=== PATIENT | female | born 1995 | race Caucasian/White ===

== ENCOUNTER 2025-04-06 13:52 | Outpatient (OUT) | payer OTHER, SELFPAY ==
[2025-04-06 14:33] LABS: Hematocrit 36.8 % (36.0-48.0); Hemoglobin 12.5 g/dL (12.0-16.0); Immature Granulocytes Abs Auto 0.03 10^3/uL (0.00-0.03); Immature Granulocytes Pct Auto 0.4 % (0.0-0.5); Lymphocytes Absolute Auto 1.8 10^3/uL (1.2-3.8); Mean Corpuscular HGB Conc 34.0 g/dL (29.9-35.2); Mean Corpuscular Hemoglobin 31.8 pg (26.7-34.0); Mean Corpuscular Volume 93.6 fL (81.0-99.0); Platelet Count 283 10^3/uL (150-450); Red Blood Count 3.93 10^6/uL (4.20-5.40); White Blood Count 7.5 10^3/uL (4.0-11.0)
[2025-04-06 14:57] LABS: Thyroid Stimulating Hormone 0.852 uIU/mL (0.358-3.740)
[2025-04-07 04:07] LABS: FSH 6.5 mIU/mL (.)
== END 2025-04-06 13:53 | disposition home or self-care (01) ==
LOC: LAB 13:57
PROVIDERS: Visit Provider Obstetrics & Gynecology
DX: N92.1 Excessive and frequent menstruation with irregular cycle (principal); N80.9 Endometriosis, unspecified; N93.9 Abnormal uterine and vaginal bleeding, unspecified; N92.0 Excessive and frequent menstruation with regular cycle
CPT/HCPCS: 36415; 82626; 82627; 83001; 83002; 83036; 84439; 84443; 84702; 85025; 88305

== ENCOUNTER 2025-04-06 15:19 | Outpatient (REF) | payer OTHER, SELFPAY ==
--- OUTSIDE RECORDS SUMMARY | 2025-04-06 14:30 | XMS_ITS | Encounter Summary ---
Author Organization [facility] Address [address] [place] [place] [address] Care Team Providers Care Signal Manager Name Role Phone Donna Lopez NP Unavailable [phone] Cassandra Cifuentes MD Primary Care Provider [phone] Reason for Visit * Reason Comments Pre-op Visit EMBX Encounter Details Date Type Department Care Team (Late st Contact Info) Description 04/06/2025 2:30 PM EDT Procedure Visit [facility] [address] [phone] Reece Almeida, DO [address] [place], [place] [id number] Pre-op examination; Abnormal uterine bleeding (AUB); Menorrhagia with irregular cycle; Pelvic pain Social History Tobacco Use Types Packs/Day Years Used Date Smoking Tobacco: Never Smokeless Tobacco: Never Alcohol Use Standard Drinks/Week Comments Not Currently 0 (1 standard drink = 0.6 oz pur e alcohol) AUDIT-C Answer Date Recorded Q1: How often do you have a drink containing alcohol? Never 04/09/2023 Q2: How many drinks containi ng alcohol do you have on a typical day when you are drinking? Patient does not drink Q3: How often do you have si x or more drinks on one occasion? Never 04/09/2023 PHQ-2 Answer Date Recorded Patient Health Questionnaire-2 Score 3 10/25/2024 Comments No Sex and Gender Information Value Date Recorded Sex Assigned at Not on file Legal Sex Female 11:47 PM EDT Gender Identity Female 06/25/2024 7:01 AM EDT Sexual Orientation Not on file documented as of this encounter Last Filed Vital Signs Vital Sign Reading Time Taken Comments Blood Pressure 100/70 04/06/2025 2:34 PM EDT Pulse - - Temperature - - Respiratory Rate - - Oxygen Saturation - - Inhaled Oxygen Concentration - - Weight 77.9 kg (171 lb 12.8 oz) 04/06/2025 2:34 PM EDT Height - - Body Mass Index 29.49 03/10/2025 4:29 PM EDT documented in this encounter Progress Notes * Arti Vickers - 04/06/2025 2:30 PM EDTAssociated Order(s): Endometrial biopsy Post-Procedure Diagnose(s): Menorrhagia with irregular cycle; Abnormal uterine bleeding (AUB) Reason for Appointment: Patient ID: Chelsy Bhatti is a 29 y.o. female who presents for Pre-op Visit and EMBX Patient presents today for a Endometrial Biopsy and Pre Op/Endometrial Biopsy appointment. Patient is scheduled to undergo Da Emily assisted Bilateral Laparoscopic Salpingectomy and Endometrial Ablation with Raven on 05-06-[address] Almeida at [facility]. appointment. MEDICATIONS Current Outpatient Medications Medication Instructions SUMAtriptan (IMITREX) 50 mg, Oral, Once as needed, May repeat after 2 hours. ALLERGIES Allergies Allergen Reactions Amoxicillin Rash PROBLEMS Active Ambulatory Problems Diagnosis Date Noted Asthma without status asthmaticus (HCC) 10/25/2024 Bilateral chronic knee pain 10/25/2024 Contact dermatitis 10/25/2024 Costal chondritis 10/25/2024 Dysmenorrhea 10/25/2024 Dyspnea 12/06/2008 Depression screening 10/25/2024 Encounter for issue of repeat prescription 10/25/2024 Headache 10/25/2024 Insomnia 10/25/2024 Migraine 10/25/2024 Migraine without aura and without status migrainosus, not intractable 10/25/2024 Mixed anxiety and depressive disorder 10/25/2024 New daily persistent headache 10/25/2024 Otitis media of left ear 10/25/2024 Pain in wrist 10/25/2024 Sprain of ribs, initial encounter 06/14/2009 Menorrhagia with irregular cycle 02/28/2025 Endometriosis 02/28/2025 Resolved Ambulatory Problems Diagnosis Date Noted No Resolved Ambulatory Problems Past Medical History: Diagnosis Date Asthma (HCC) HISTORY PAST MEDICAL HISTORY SOCIAL HISTORY Past Medical History: Diagnosis Date Asthma (HCC) Endometriosis Social History Tobacco Use Smoking status: Never Smokeless tobacco: Never Vaping Use Vaping status: Never Used Substance Use Topics Alcohol use: Not Currently Drug use: Never FAMILY HISTORY Family History Problem Relation Name Age of Onset COPD Mother Other (Pacemaker) Father No Known Problems Sister 2 Diabetes Maternal Grandmother Other (Pacemaker) Paternal Grandfather SURGICAL HISTORY Past Surgical History: Procedure Laterality Date LAPAROSCOPY CLOSURE ENTEROSTOMY 2017 REVIEW OF SYSTEMS Review of Systems: Review of Systems Constitutional: Negative. HENT: Negative. Eyes: Negative. Respiratory: Negative. Cardiovascular: Negative. Gastrointestinal: Negative. Genitourinary: Positive for menstrual problem. Musculoskeletal: Negative. Skin: Negative. Neurological: Negative. All other systems reviewed and are negative. Hematological: Negative. Endocrine: Negative. Allergic/Immunologic: Negative. OBJECTIVE Objective: Physical Exam Constitutional: Appearance: Normal appearance. She is well-developed. Genitourinary: Vulva normal. Cardiovascular: Rate and Rhythm: Normal rate and regular rhythm. Pulmonary: Effort: Pulmonary effort is normal. Breath sounds: Normal breath sounds. Abdominal: General: Bowel sounds are normal. There is no distension. Palpations: Abdomen is soft. Tenderness: There is no abdominal tenderness. There is no guarding or rebound. Musculoskeletal: General: No swelling. Normal range of motion. Right lower leg: No edema. Left lower leg: No edema. Neurological: Mental Status: She is alert and oriented to person, place, and time. Skin: General: Skin is warm and dry. Psychiatric: Mood and Affect: Mood normal. Behavior: Behavior normal. Vitals and nursing note reviewed. Exam conducted with a ticket machine operator present. Vitals: Estimated body mass index is 30.04 kg/m?? as calculated from the following: Height as of 03/10/25: 5' 4 . Weight as of 03/10/25: 175 lb. BP: No LMP recorded. ASSESSMENT & PLAN Assessment/Plan Encounter Diagnosis: ICD-10-CM 1. Pre-op examination Z01.818 2. Abnormal uterine bleeding (AUB) N93.9 3. Menorrhagia with irregular cycle N92.1 4. Pelvic pain R10.2 EMBX: Patient was placed in dorsal lithotomy position with feet in stirrups. A sterile speculum was placed into the vagina and the cervix was visualized. The cervix was grasped with a single tooth tenaculum. The endometrial pipette was placed through the cervix into the uterus, endometrial curettage was performed and sampling was obtained, endometrial curettings were placed in formalin, and single tooth tenaculum was removed. Excellent hemostasis was assured. All instruments were removed from vagina. Pre Op: Patient is doing well but has complaints of bleeding and pelvic pain. Patient has tried hormone therapy in the past but all attempts to subside patients issues have failed. I have discussed conservative management vs. surgical management with the patient in detail and patient desires surgical management at this time. Patient will undergo Da Emily assisted Bilateral Laparoscopic Salpingectomy and Endometrial Ablation with Raven on 05/06/25. Surgical consents were signed, mmc was reviewed, and patient is to proceed to [facility] OR. Follow Up: Patient is to follow up between 1-2 weeks post op to assess proper healing and recovery from procedure. Endometrial biopsy Date/Time: 04/06/2025 2:50 PM Performed by: Reece Almeida DO Authorized by: Reece Almeida DO Consent: Consent obtained: written Consent given by: patient Risks discussed: bleeding Patient agrees, verbalizes understanding, and wants to proceed: yes Indications: Indications: abnormal uterine bleeding and abnormal bleeding from female genital tract Pre-procedure: Urine test: negative Procedure: A bimanual exam was performed: no Tenaculum used: yes Local anesthetic: none Findings: Cervix: normal Specimen collected: specimen collected and sent to pathology Patient tolerance: tolerated well, no immediate complications Comments: Procedure comments: EMBX: Patient was placed in dorsal lithotomy position with feet in stirrups. A sterile speculum was placed into the vagina and the cervix was visualized. The cervix was grasped with a single tooth tenaculum. The endometrial pipette was placed through the cervix into the uterus, endometrial curettage was performed and sampling was obtained, endometrial curettings were placed in formalin, and single tooth tenaculum was removed. Excellent hemostasis was assured. All instruments were removed from vagina. Follow Up: Patient is to return Documented by Yvonne Grimes LPN on behalf of: Reece Almeida DO documented in this encounter Plan of Treatment Upcoming Encounters Date Type Department Care Team (Late st Contact Info) Description 05/12/2025 10:30 AM EDT Office Visit [facility] OB [address] [place] [phone] Kymberly Godinez PA [address] [place] [address] [place] [address] 06/15/2025 1:00 PM EDT Office Visit [facility] OB [address] [place] [phone] Kymberly Godinez PA [address] [place] [address] documented as of this encounter Procedures Procedure Name Priority Date/Time Associated Diagnosis Comments ENDOMETRIAL BIOPSY Routine 04/06/2025 2: 50 PM EDT Abnormal uterine bleeding (AUB) Menorrhagia with irregular cycle POCT , URINE Routine 04/06/2025 2:44 PM EDT Pre-op examination Abnormal uterine bleeding (AUB) Menorrhagia with irregular cycle Pelvic pain documented in this encounter Results * Endometrial biopsy (04/06/2025 2:50 PM EDT) Narrative Yvonne Grimes LPN - 04/06/2025 2:50 PM EDT Yvonne Grimes LPN 04/06/2025 3:03 PM Endometrial biopsy Date/Time: 04/06/2025 2:50 PM Performed by: Reece Almeida DO Authorized by: Reece Almeida DO Consent: Consent obtained: written Consent given by: patient Risks discussed: bleeding Patient agrees, verbalizes understanding, and wants to proceed: yes Indications: Indications: abnormal uterine bleeding and abnormal bleeding from female genital tract Pre-procedure: Urine test: negative Procedure: A bimanual exam was performed: no Tenaculum used: yes Local anesthetic: none Findings: Cervix: normal Specimen collected: specimen collected and sent to pathology Patient tolerance: tolerated well, no immediate complications Comments: Procedure comments: EMBX: Patient was placed in dorsal lithotomy position with feet in stirrups. A sterile speculum was placed into the vagina and the cervix was visualized. The cervix was grasped with a single tooth tenaculum. The endometrial pipette was placed through the cervix into the uterus, endometrial curettage was performed and sampling was obtained, endometrial curettings were placed in formalin, and single tooth tenaculum was removed. Excellent hemostasis was assured. All instruments were removed from vagina. Follow Up: Patient is to return [employer] DO IN CLINIC/BEDSIDE ORDERABLES Fin al Result * POCT , urine manually resulted (04/06/2025 2:44 PM EDT) Preg Test, Ur Negative Negative Urine 04/06/2025 2:44 PM EDT [employer] DO POINT OF CARE TEST ENTER/EDIT OR DERABLES Final Result documented in this encounter Visit Diagnoses Diagnosis Pre-op examination Abnormal uterine bleeding (AUB) Menorrhagia with irregular cycle Pelvic pain documented in this encounter Additional Health Concerns Assessment Noted Time PHQ-9 Depression Total Score: 7 10/25/19 25 4:30 PM EST documented as of this encounter Care Teams Signal Manager Relationship Specialty Start Date End Date Cassandra Cifuentes MD [address] [place] [address] PCP - General Family Medicine 04/08/23 Donna Lopez NP [address] [place] [address] Nurse Practitioner Family Medicine 03/25/23 documented as of this encounter
--- OUTSIDE RECORDS SUMMARY | 2025-04-07 14:10 | XMS_ITS | Encounter Summary ---
Author Organization [facility] tem Address [id number] [address] [place] [address] Care Team Providers Care Quality System Manager Name Role Phone Cassandra Cifuentes MD Primary Care Provider [phone] Encounter Details Date Type Department Care Team (Latest Contact Info) Description 04/07/2025 2:10 PM EDT - 04/07/2025 11:59 PM EDT Hospital Encounter [facility] - Radiology [address] [place] [address] Ureteral stone Discharge Disposition: Home Social History [...] mg total) before bedtime. 20 tablet 09/20/2023 ketorolac (TORADOL) 10 mg tablet Take 1 tablet (10 mg total) by mouth every 6 (six) hours as needed for pain. 20 tablet 12/18/2024 ondansetron ODT (ZOFRAN ODT) 4 mg disintegrating tablet Dissolve 1 tablet (4 mg total) on tongue every 8 (eight) hours as needed for nausea for up to 10 doses. 10 tablet 12/18/2024 SUMAtriptan (IMITREX) 50 mg tablet TAKE ONE TABLET BY MOUTH AT ONSET OF MIGRAINE. IF SYMPTOMS PERSIST, A SECOND DOSE MAY BE TAKEN IN 2 HOURS. DO NOT EXCEED 2 DOSES IN A 24 HOUR PERIOD, UNLESS OTHERWISE INSTRUCTED BY YOUR PHYSICIAN tamsulosin (FLOMAX) 0.4 mg capsule Take 1 capsule (0.4 mg total) by mouth in the morning. 30 capsule 2 12/22/2024 documented as of this encounter Plan of Treatment Upcoming Encounters Date Type Department Care Team (Late st Contact Info) Description 04/11/2025 3:30 PM EDT Office Visit [facility] [address] [place] [address] [place] [phone] Paul Montoya MD [facility] [place] [address] 04/13/2025 10:00 AM EDT Appointment [facility] - Ultrasound [address] [place] [phone] Pending Results Name Type Priority Associated Diagnoses Date /Time X-ray abdomen ap 1 view Imaging Routine Ureteral stone 04/07/2025 2:26 PM EDT Scheduled Orders Name Type Priority Associated Diagnoses Orde r Schedule X-ray abdomen ap 1 view Imaging Routine Ureteral stone Once for 1 Occurrences starting 04/07/2025 until 04/07/2025 documented as of this encounter Visit Diagnoses Diagnosis Ureteral stone Calculus of ureter documented in this encounter Care Teams Quality System Manager Relationship Specialty Start Date End Date Cassandra Cifuentes MD [address] [place], [place] [phone] PCP - General Family Medicine 12/22/24 documented as of this encounter
--- OUTSIDE RECORDS SUMMARY | 2025-04-08 15:22 | XMS_ITS | Encounter Summary ---
Author Organization [employer] [facility] tem Address [id number] [address] [place] [address] Care Team Providers Care Spotter Driver Name Role Phone Cassandra Cifuentes MD Primary Care Provider [phone] Encounter Details Date Type Department Care Team (Latest Contact Info) Description 04/07/2025 Travel Social History Tobacco Use Types Packs/Day Years [...] on file documented as of this encounter Plan of Treatment Upcoming Encounters Date Type Department Care Team (Late st Contact Info) Description 04/11/2025 3:30 PM EDT Office Visit [facility] [address] [place] [address] Paul Montoya MD [address] [place] [address] 04/13/2025 10:00 AM EDT Appointment [facility] - Ultrasound [address] [place] [phone] documented as of this encounter Visit Diagnoses Not on filedocumented in this encounter Care Teams Spotter Driver Relationship Specialty Start Date End Date Cassandra Cifuentes MD [address] [place], [place] [phone] PCP - General Family Medicine 12/22/24 documented as of this encounter
--- OUTSIDE RECORDS SUMMARY | 2025-04-08 15:22 | XMS_ITS | Clinical Summary ---
Author Organization [facility] tem Address [id number] [address] [place] [address] Care Team Providers Care Road Patcher Name Role Phone Cassandra Cifuentes MD Primary Care Provider Allergies Active Allergy Reactions Criticality Noted Date Comments Amoxicillin Rash Low 09/20/2023 Medications dicyclomine (BENTYL) 20 mg tablet Take 1 tablet (20 mg total) by mouth in the morning and 1 tablet (20 mg total) before bedtime. 20 tablet 3 Active ketorolac (TORADOL) 10 mg tablet Take 1 tablet (10 mg total) by mouth every 6 (six) hours as needed for pain. 20 tablet 5 Active ondansetron ODT (ZOFRAN ODT) 4 mg disintegrating tablet Dissolve 1 tablet (4 mg total) on tongue every 8 (eight) hours as needed for nausea for up to 10 doses. 10 tablet 5 Active SUMAtriptan (IMITREX) 50 mg tablet TAKE ONE TABLET BY MOUTH AT ONSET OF MIGRAINE. IF SYMPTOMS PERSIST, A SECOND DOSE MAY BE TAKEN IN 2 HOURS. DO NOT EXCEED 2 DOSES IN A 24 HOUR PERIOD, UNLESS OTHERWISE INSTRUCTED BY YOUR PHYSICIAN Active tamsulosin (FLOMAX) 0.4 mg capsule Take 1 capsule (0.4 mg total) by mouth in the morning. 30 capsule 2 5 Active Active Problems Problem Noted Date Diagnosed Date Irregular menses 07/09/2017 Encounters Date Type Department Care Team Description 04/07/2025 2:10 PM EDT - 04/07/2025 11:59 PM EDT Hospital Encounter [facility] - Radiology [address] [place] [id number] Ureteral stone Discharge Disposition: Home 04/07/2025 Telephone [facility] [address] [place] [address] Juan Moreau MD 04/07/2025 Travel from Last 3 Months Family History Medical History Relation Name Comments Diabetes Maternal Grandmother Hypertension Maternal Grandmother Diabetes Mother Diabetes Sister Miscarriages / Stillbirths Sister Relation Name Status Comments Maternal Grandmother Mother Sister Social History Tobacco Use Types Packs/Day Years [...] on file Sexual Orientation Not on file Last Filed Vital Signs Vital Sign Reading Time Taken Comments Blood Pressure 106/72 12/22/2024 10:27 AM EDT Pulse 62 12/22/2024 10:27 AM EDT Temperature 36.6 C (97.9 F) 12/18/2024 4:10 AM EDT Respiratory Rate 15 12/18/2024 6:04 AM EDT Oxygen Saturation 99% 12/18/2024 6:04 AM EDT Inhaled Oxygen Concentration - - Weight 78.7 kg (173 lb 6.4 oz) 12/22/2024 10:27 AM EDT Height 170.2 cm (5' 7.01 ) 12/22/2024 10:27 AM E DT Body Mass Index 27.15 12/22/2024 10:27 AM EDT Plan of Treatment Upcoming Encounters Date Type Department Care Team (Late st Contact Info) Description 04/11/2025 3:30 PM EDT Office Visit [facility] [address] [address] Paul Montoya MD [address], [place] [id number] 04/13/2025 10:00 AM EDT Appointment [facility] - Ultrasound [address] [place] [address] Health Maintenance Due Date Last Done Comments Depression Screening 2007 Adult BMI Follow Up Plan 2013 DTaP,Tdap and Td Vaccines (1 - Tdap) 2014 Pap Smear 07/09/2020 07/09/2017 Influenza Vaccine 05/30/2025 Adult BMI Screening 12/22/2025 12/22/2024 Tobacco Screening 12/23/2025 12/23/2024 Medical Devices Not on file Procedures Procedure Name Priority Date/Time Associated Diagnosis Comments URIC ACID Routine 04/07/2025 2:09 PM EDT Calculus of ureter PARATHYROID HORMOME, INTACT Routine 04/07/2025 2:09 PM EDT Calculus of ureter PAP SMEAR Routine 07/09/2017 12:32 PM EDT from Last 3 Months or Most Recently Relevant to Health Maintenance Results * Parathyroid Hormone, intact (04/07/2025 2:09 PM EDT) PTH INTACT 42 12 - 88 pg/mL 04/07/2025 8:23 PM EDT [facility] Blood Venous blood / Unknown Venipuncture / Unknown 04/07/2025 2:09 PM EDT 04/07/2025 2:09 PM EDT us Juan Moreau MD LAB BLOOD ORDERABLES Final Result [facility] [address] [place] [address], * Uric acid (04/07/2025 2:09 PM EDT) URIC ACID 4.8 2.6 - 7.2 mg/dL 04/07/2025 8:12 PM EDT [facility] Blood Venous blood / Unknown Venipuncture / Unknown 04/07/2025 2:09 PM EDT 04/07/2025 2:09 PM EDT Juan Moreau MD LAB BLOOD ORDERABLES Final Result [facility] [address] [place] [address], * Pap Smear (07/09/2017 12:32 PM EDT) Cervical TP 07/09/2017 12:3 2 PM EDT 07/10/2017 12:33 PM EDT Narrative [facility] - 07/14/2017 9:32 AM EDT [facility] [address] [place] [address] Gynecologic Cytology Consultation Patient Name: CHELSY RAMSEY : 1995 (Age: 21) Gender: F Taken: 07/09/2017 Reported: 07/14/2017 Physician(s): Ondina Albarran CNM ( ) Copy To: Med. Rec. #: [id number] Acct: # [id number] Final Cytologic Interpretation Cervical (with or without endocervical) ThinPrep: Satisfactory for evaluation. A transformation zone component is present. NEGATIVE FOR INTRAEPITHELIAL LESION OR MALIGNANCY. jja/07/14/2017 Electronically Signed Out By [facility] (ASCP) Date of Last Menstrual Period: 07-01-17 Other Clinical Conditions: Screening/Routine z01.419 Shell Plater exam wo/abn findings Source of Specimen Cervical (with or without endocervical) ThinPrep Thin Prep Pap (CONTINUING EDUCATION SPECIALIST) Fee Code(s): G0145 The Pap test is a screening test with an inherent, but low, probability of error. The Pap test is primarily effective for the diagnosis and prevention of squamous cell carcinoma. Regular screening is critical for prevention. ThinPrep liquid-based slides, which meet the Informatics Nurse Specialist criteria for automated screening, have been screened by the ThinPrep Imaging System (as of 06/15/07) along with an additional manual rescreening by a employment services director and, if indicated, by a pathologist.Ondina Albarran CNM 07/11/2017 Ondina Albarran LENS FABRICATING MACHINE TENDER-ISHAN PATHOLOGY/CYTOLOGY ORDERAB LES Final Result [facility] from Last 3 Months or Most Recently Relevant to Health Maintenance Insurance [employer] Care Teams Road Patcher Relationship Specialty Start Date End Date Cassandra Cifuentes MD [address] [place] [address] PCP - General Family Medicine 12/22/24
--- OUTSIDE RECORDS SUMMARY | 2025-04-08 15:23 | XMS_ITS | Patient Health Record ---
Author Organization [facility] vices Address [address] [place], [place] [address] Care Team Providers Care Mathematical Engineer Name Role Phone Sascha Tejada Primary Care Provider [phone] Allergies Allergen (clinical drug ingredient) Drug/Non Drug Allergy documented on EMR Reaction Allergy Type Onset Date Status amoxicillin Amoxicillin Rash Drug Allergy Act emani Reason For Referral No Information Medications Medication SIG (Take, Route, Frequency, Duration) Notes Start Date End Date Status SUMAtriptan Succinate 50 MG 1 tablet Ora lly as directed for 30 days 04/22/2022 Active Amitriptyline HCl 50 MG 1 tablet at bedt rachael Orally Once a day for 30 day(s) 04/22/2022 Active Social History Tobacco Use: Social History Observation Description Date Details (start date - stop date) Never Smoker NA - NA Tobacco Use/Smoking Question Answer Notes Tobacco use: nonsmoker Alcohol Screen (Audit-C) Question Answer Notes Did you have a drink containing alcohol in the p ast year? No Points 0 Interpretation Negative Problems Problem Type SNOMED Code ICD Code Onset Dates Problem Status W/U Status Risk Notes Problem 145781120 Migraine without aura and without status migrainosus, not intractable (G43.009) Active confirmed Problem New daily persistent headache (disorder) (9371471065233 05) Persistent headaches (R51.9) Active confirmed Comment:-Patient has hx of chronic, recurring headaches; has had recent change in the severity and quality of headaches -Was referred to neurology in 2013 but pt never kept appt -HAs are not characteristic of migraines; d/t frequency of headaches, do not think abortive therapies appropriate plan at moment -D/t to recent changes in HAs and severity at time; refer to neurology, Problem Bilateral chronic knee pain (M25.561) Active confirmed Comment:Chronic problem, +cracking and patellar hypermobility on exam. Will send for ortho referral. Ibuprofen as needed for the pain. Patient and father expressed understanding., Problem Depression screening (493661206) Screening for depression (Z13.31) Active confirmed Description:Dep r ession screening Problem Dyspnea (393120130) Breath shortness (R06.02) 009 Active confirmed Description:Shor tness of breath Problem Insomnia (835415667) Insomnia (G47.00) Active confirmed Problem Migraine (43533790) Migraine (G43.909) Active confirmed Problem Dysmenorrhea (307263540) Menses painful (N94.6) Active confirmed Comment:Will refer to STRIKE PLATE ATTACHER for further evaluation of painful irregular menstruation; prefers a women Can continue with heat for comfort as needed, Problem Mixed anxiety and depressive disorder (851143653) Anxiety and depression (F41.9) Active confirmed Problem Medication refill (V68.1) (Z76.0) Active confirmed Problem Well child visit (776066580) FEMALE ADOLESCENT WELL VISIT (V20.2) (V20.2) Active confirmed Comment:Instruc t ed to continue to take medications as needed, return if symptoms worsen or do not get better. Instructed on immunizations that would be required prior to starting school. Patient verbalizes and agrees with plan of care., Problem Costal chondritis (80589235) Costal chondritis (M94.0) Active confirmed Comment:-Pt has no longer been experiencing chest pain or SOB; did not fully complete prednisone burst -No pain reproducible with palpation -Pain was likely attributed to costochondritis -Can c/w with meloxicam (pt is taking for migraines) and/or tylenol for acute exacerbations -If symptoms worsen or do not improve; RTO, patient and mother agreed with plan,Description :Costalchondriti s Problem Pain in wrist (67350290) Wrist pain, left (M25.532) Active confirmed Comment:Resolved with PT. X-rays negative for fracture. Doing much better... F/u as needed., Problem Headache (18158093) New onset of headaches (784.0) (784.0) Active confirmed Comment:Started last week, no history of headaches. No focal neurologic signs. Neurology referral., Problem Contact dermatitis (20250134) Dermatitis, contact (L25.9) Active confirmed Comment:potentia lly resolving contact dermatitis ? though if it is more eczema than contact encouraged to use routine moisturizing (eucerin) if not resolving, can trial hydrocortisone, Problem Asthma without status asthmaticus (33719880) Asthma, mild (J45.909) Active confirmed Comment:-SOB and issues with breathing have improved since last visit -Ventolin inhaler use decreasing; now only using 1-2x/week -No longer having chest pain -Not symptoms at night; not affecting ADLs -If symptoms worsen or return; return to office; PVU, Problem Sprain and strain of ribs (S23.41XA) 009 Active confirmed Problem Well child visit (133259012) Routine or child health check (V20.2) (V20.2) 010 Active confirmed Problem Otitis media of left ear (4470445152637 100) Left otitis media (H66.92) Active confirmed Comment:-Bulging and erythematous Lt TM with clear fluid effusion -there is no drainage or pain behind ear -denies fever or myalgias -started on Z-Ashok as she is allergic to PCN and Mucinex DM -keep hydrated and can use warm salt water gargles -f/u as needed, Plan Of Treatment No Information Insurance Providers Payer Name Payer Address Payer Phone Subscriber Number Group Number Insured Name Patient Relationship to Insured Coverage Start Date Coverage End Date [employer] [address] [place] [address] [place], [place] [id number] Chelsy Bhatti Self - patient is the insured 3 [employer] [facility] [address] [address] [place] [address] [id number] Chelsy Bhatti Self - patient is the insured 2 Medical (General) History Medical History History ICD Code Anxiety and depression Asthma, mild Surgical History Surgery Date(Month/Year) endometrial ablation 2018
--- OUTSIDE RECORDS SUMMARY | 2025-04-08 15:23 | XMS_ITS | Clinical Summary ---
Author Organization [facility] Address [address] [place] [address] Care Team Providers Care Surface Room Shop Optician Name Role Phone Donna Lopez NP Unavailable [phone] Cassandra Cifuentes MD Primary Care Provider [phone] Allergies Active Allergy Reactions Criticality Noted Date Comments Amoxicillin Rash Low 09/20/2023 Medications SUMAtriptan (Imitrex) 50 MG tabletIndication s:Migraine without aura and without status migrainosus, not intractable Take 1 tablet (50 mg) by mouth 1 (one) time if needed for migraine May repeat after 2 hours. 9 tablet Active Active Problems Problem Noted Date Diagnosed Date Menorrhagia with irregular cycle 02/28/2025 Endometriosis 02/28/2025 Asthma without status asthmaticus 10/25/2024 Bilateral chronic knee pain 10/25/2024 Contact dermatitis 10/25/2024 Costal chondritis 10/25/2024 Dysmenorrhea 10/25/2024 Depression screening 10/25/2024 Encounter for issue of repeat prescription 10/25 Headache 10/25/2024 Insomnia 10/25/2024 Migraine 10/25/2024 Migraine without aura and wi thout status migrainosus, not intractable 10/25/2024 Mixed anxiety and depressive disorder 10/25/2024 New daily persistent headache 10/25/2024 Otitis media of left ear 10/25/2024 Pain in wrist 10/25/2024 Sprain of ribs, initial encounter 06/14/2009 Dyspnea 12/06/2008 Encounters Date Type Department Care Team Description 04/06/2025 2:30 PM EDT Procedure Visit [facility] [address] [place] [address] Reece Almeida DO Pre-op examination; Abnormal uterine bleeding (AUB); Menorrhagia with irregular cycle; Pelvic pain 04/06/2025 Clinisync Result Encounter [facility] External Department Unsolicited Reece Almeida DO 03/10/2025 4:50 PM EDT Office Visit [facility] [address] [address] [place] [phone] Chaparro Garza DPM Onychocryptosis (Primary Dx); Abscess of toe, right; Toe pain, right 03/10/2025 9:30 AM EDT Ancillary Procedure [facility] [address] [place] [address] Menorrhagia with irregular cycle; Endometriosis; Abnormal uterine bleeding (AUB) 03/10/2025 Travel 02/28/2025 1:40 PM EDT Office Visit [facility] [address] [place] [address] Reece Almeida DO Menorrhagia with irregular cycle; Endometriosis; Abnormal uterine bleeding (AUB) 02/28/2025 Bamboo flowsheet [facility] [address] [place] [address] Reece Almeida DO 02/17/2025 4:10 PM EDT Office Visit [facility] [address] [facility] [address] [place] [phone] Chaparro Garza DPM Abscess of toe, right (Primary Dx); Onychocryptosis; Toe pain, right 02/17/2025 Bamboo flowsheet [facility] [address] [facility] [address] [place] [phone] Chaparro Garza DPM 02/17/2025 Travel 01/20/2025 4:30 PM EDT Office Visit [facility] [address] [facility] [address] [place] [phone] Chaparro Garza DPM Onychocryptosis (Primary Dx); Abscess of toe, right; Toe pain, right 01/20/2025 Bamboo flowsheet [facility] [address] [place] [address] [place] [address] Chaparro Garza DPM 01/20/2025 Travel from Last 3 Months Family History Medical History Relation Name Comments Pacemaker Father Diabetes Maternal Grandmother COPD Mother Pacemaker Paternal Grandfather No Known Problems Sister 2 Relation Name Status Comments Father Alive Maternal Grandfather Alive Maternal Grandmother Mother Alive Paternal Grandfather Paternal Grandmother Sister 2 Alive Social History Tobacco Use Types Packs/Day Years Used Date Smoking Tobacco: Never Smokeless Tobacco: Never Tobacco Cessation:Counseling Given: Yes Alcohol Use Standard Drinks/Week Comments Not Currently [...] AM EDT Sexual Orientation Not on file Last Filed Vital Signs Vital Sign Reading Time Taken Comments Blood Pressure 100/70 04/06/2025 2:34 PM EDT Pulse 76 11/22/2024 4:46 PM EST Temperature 37 C (98.6 F) 04/09/2023 10:07 AM EDT Respiratory Rate 18 03/10/2025 4:29 PM EDT Oxygen Saturation 98% 11/22/2024 4:46 PM EST Inhaled Oxygen Concentration - - Weight 77.9 kg (171 lb 12.8 oz) 04/06/2025 2:34 PM EDT Height 162.6 cm (5' 4 ) 03/10/2025 4:29 PM EDT Body Mass Index 29.49 03/10/2025 4:29 PM EDT Plan of Treatment Upcoming Encounters Date Type Department Care Team (Late st Contact Info) Description 05/12/2025 10:30 AM EDT Office Visit [facility] [address] [facility] [place] [place] [address] Kymberly Godinez PA [address] [facility] [place] [address] 06/15/2025 1:00 PM EDT Office Visit [facility] [address] [facility] [place] [phone] Kymberly Godinez PA [address] [facility] [place] [address] Health Maintenance Due Date Last Done Comments Influenza Vaccine (#1) 2025 Procedures Procedure Name Priority Date/Time Associated Diagnosis Comments ENDOMETRIAL BIOPSY Routine 04/06/2025 2: 50 PM EDT Abnormal uterine bleeding (AUB) Menorrhagia with irregular cycle POCT , URINE Routine 04/06/2025 2:44 PM EDT Pre-op examination Abnormal uterine bleeding (AUB) Menorrhagia with irregular cycle Pelvic pain ALL FOLLICLE STIMULATING HORMONE Routine 04/06/2025 2:08 PM EDT ALL LUTEINIZING HORMONE Routine 04/06/2025 2:08 PM EDT ALL DHEA SULFATE Routine 04/06/2025 2:08 PM EDT ALL THYROXINE (T4) FREE Routine 04/06/2025 2:08 PM EDT MLR HEMOGLOBIN A1C Routine 04/06/2025 2: 08 PM EDT TBH PREG QUANT HCG Routine 04/06/2025 2: 08 PM EDT ALL THYROID STIM HORMONE Routine 04/06/2025 2:08 PM EDT ALL CBC WITH AUTO DIFF Routine 04/06/2025 2:08 PM EDT US PELVIC COMPLETE W/ TV Routine 03/10/2025 10:34 AM EDT Menorrhagia with irregular cycle Endometriosis Abnormal uterine bleeding (AUB) from Last 3 Months Results * Endometrial biopsy (04/06/2025 2:50 PM [...] vagina. Follow Up: Patient is to return Reece Almeida DO IN CLINIC/BEDSIDE ORDERABLES Fin al Result * POCT , urine manually resulted (04/06/2025 2:44 PM EDT) Preg Test, Ur Negative Negative Urine 04/06/2025 2:44 PM EDT Reece Almeida DO POINT OF CARE TEST ENTER/EDIT OR DERABLES Final Result * TBH PREG QUANT HCG (04/06/2025 2:08 PM EDT) [facility] HCG QUANTITATIVE <1 mIU/mL TB Comment: 5-50 0.2-1 WEEK 50-500 1-2 WEEKS 100-5,000 2-3 WEEKS 500-10,000 3-4 WEEKS 1,000-50,000 4-5 WEEKS 10,000-100,000 5-6 WEEKS 15,000-200,000 6-8 WEEKS 10,000-100,000 2-3 MONTHS 04/06/2025 2:08 PM EDT 04/06/2025 2:10 PM EDT Narrative CLINISYNC - 04/06/2025 3:00 PM EDT [facility] Final Result Performing Organization Address City/[facility]/ZIP Co de Phone Number [facility] * MLR HEMOGLOBIN A1C (04/06/2025 2:08 PM EDT) [facility] GLYCOHEMOGLOBIN A1C 4.9 4.5 - 6.2 % [facility] Comment: ADA RECOMMENDED LIMIT 4.0 - 6.0 ADA THERAPEUTIC TARGET < 7.0 ACTION SUGGESTED > 7.0 ESTIMATED AVERAGE GLUCOSE 94 mg/dL TB 04/06/2025 2:08 PM EDT 04/06/2025 2:10 PM EDT Narrative CLINISYNC - 04/06/2025 3:00 PM EDT [facility] Final Result [facility] * ALL THYROXINE (T4) FREE (04/06/2025 2:08 PM EDT) [facility] FREE T4 0.96 0.76 - 1.46 ng/dL [facility] 04/06/2025 2:08 PM EDT 04/06/2025 2:10 PM EDT Narrative CLINISYNC - 04/06/2025 3:23 PM EDT Reece Juan Pablo DO CLINIS[facility]NC Final Result Performing Organization Address City/[facility]/ZIP Co de Phone Number [facility] * ALL THYROID STIM HORMONE (04/06/2025 2:08 PM EDT) THYROID STIMULATING HORMONE 0.852 0.358 - 3.740 uIU/mL TBH 04/06/2025 2:08 PM EDT 04/06/2025 2:10 PM EDT Narrative CLINISYNC - 04/06/2025 3:00 PM EDT Reece Juan Pablo DO CLINIS[facility] Final Result Performing Organization Address [facility] Co de Phone Number [facility] * ALL LUTEINIZING HORMONE (04/06/2025 2:08 PM EDT) LUTEINIZING HORMONE(LH) 7.1 . mIU/mL TBH Comment: Adult Female Range Follicular phase 2.4 - 12.6 Ovulation phase 14.0 - 95.6 Luteal phase 1.0 - 11.4 Postmenopausal 7.7 - 58.5 04/06/2025 2:08 PM EDT 04/06/2025 2:10 PM EDT Narrative CLINISYNC - 04/07/2025 4:07 AM EDT Reece Juan Pablo DO CLINIS[facility]NC Final Result Performing Organization Address City/[facility] Co de Phone Number [facility] * ALL FOLLICLE STIMULATING HORMONE (04/06/2025 2:08 PM EDT) FSH 6.5 . mIU/mL TBH Comment: Adult Female Range Follicular phase 3.5 - 12.5 Ovulation phase 4.7 - 21.5 Luteal phase 1.7 - 7.7 Postmenopausal 25.8 - 134.8 Performed at: [address] [id number] Supervisory Clerk: Brady Carballo PhD, Phone: [phone] 04/06/2025 2:08 PM EDT 04/06/2025 2:10 PM EDT Narrative CLINISYNC - 04/07/2025 4:07 AM EDT Reece Juan Pablo DO CLINIS[facility]NC Final Result [facility] * ALL DHEA SULFATE (04/06/2025 2:08 PM EDT) Pathologist [facility] DHEA-SULFATE 239.0 84.8 - 378.0 ug/dL TB 04/06/2025 2:08 PM EDT 04/06/2025 2:10 PM EDT Narrative CLINISYNC - 04/07/2025 4:07 AM EDT Reece Juan Pablo DO CLINISYNC Final Result Performing Organization Address City/[facility]/ZIP Co de Phone Number [facility] * (ABNORMAL) ALL CBC WITH AUTO DIFF (04/06/2025 2:08 PM EDT) Pathologist [facility] TB WBC 7.5 4.0 - 11.0 10 3/uL TBH TB RBC 3.93(L) 4.20 - 5.40 10 6/uL TBH TB HGB 12.5 12.0 - 16.0 g/dL TB TB HCT 36.8 36.0 - 48.0 % TB TB MCV 93.6 81.0 - 99.0 fL TB TB MCH 31.8 26.7 - 34.0 pg TBH TB MCHC 34.0 29.9 - 35.2 g/dL TB TB RDW 12.2 11.0 - 15.0 % TB TB PLT 283 150 - 450 10 3/uL TBH TB MPV 10.2 9.5 - 13.5 fL TB NEUTROPHILS PERCENT AUTO 69.2 43.0 - 75.0 % TBH LYMPHOCYTES PERCENT AUTO 24.3 20.5 - 60.0 % TBH MONOCYTES PERCENT AUTO 4.5 1.7 - 12.0 % TBH TBH EO % 1.1 0.9 - 7.0 % TBH BASOPHILS PERCENT AUTO 0.5 0.2 - 2.0 % TBH IMMATURE GRANULOCYTES PCT AUTO 0.4 0.0 - 0.5 % TBH NEUTROPHILS ABSOLUTE AUTO 5.2 1.4 - 6.5 10 3/uL TBH LYMPHOCYTES ABSOLUTE AUTO 1.8 1.2 - 3.8 10 3/uL TBH MONOCYTES ABSOLUTE AUTO 0.3 0.3 - 0.8 10 3/uL TBH TBH EO # 0.1 0.0 - 0.7 10 3/uL TBH BASOPHILS ABSOLUTE AUTO 0.0 0.0 - 0.1 10 3/uL TBH IMMATURE GRANULOCYTES ABS AUTO 0.03 0.00 - 0.03 10 3/uL TBH 04/06/2025 2:08 PM EDT 04/06/2025 2:10 PM EDT Narrative TESS - 04/06/2025 2:35 PM EDT us Reece Juan Pablo DO CLINISYNC Final Result [facility] * US Pelvis w/ TV (03/10/2025 10:34 AM EDT) Anatomical Region Laterality Modality Pelvis Ultrasound 03/11/2025 10:2 5 AM EDT Narrative 03/11/2025 10:25 AM EDT EXAM: US PELVIC COMPLETE W/ TV HISTORY: Abnormal uterine bleeding, menorrhagia, irregular and heavy periods, endometriosis. COMPARISON: None available. TECHNIQUE: Two-dimensional transabdominal grayscale ultrasound imaging of the pelvis was performed. Color flow Doppler imaging of the ovaries was also performed. Transvaginal was performed. FINDINGS: UTERUS 8.0 x 3.3 x 5.4 cm The uterus is anteverted in position and demonstrates a normal, homogeneous echotexture. Multiple nabothian cysts are visualized within the cervix. ENDOMETRIUM 0.7 cm The endometrium demonstrates a normal, homogeneous echotexture. RIGHT OVARY 4.5 x 2.6 x 2.7 cm The right ovary demonstrates a normal echotexture with follicles. There is normal color Doppler flow. LEFT OVARY 3.7 x 2.0 x 2.8 cm The left ovary demonstrates a normal echotexture with follicles. There is normal color Doppler flow. No fluid is present within the cul-de-sac. IMPRESSION: 1. Unremarkable ultrasound of the pelvis. 2. Normal color Doppler flow within the bilateral ovaries. Interpreted by: Electronically signed by VINCENT ESCOBAR II, MD, PHD at 11-Mar-2025 10:23:29 AM [facility] Procedure Note Vincent Escobar MD - 03/11/2025 EXAM: US PELVIC COMPLETE W/ TV HISTORY: Abnormal uterine bleeding, menorrhagia, irregular and heavyperiods, endometriosis. COMPARISON: None available. TECHNIQUE: Two-dimensional transabdominal grayscale ultrasound imaging ofthe pelvis was performed. Color flow Doppler imaging of the ovaries wasalso performed. Transvaginal was performed. FINDINGS: UTERUS 8.0 x 3.3 x 5.4 cm The uterus is anteverted in position and demonstrates a normal,homogeneous echotexture. Multiple nabothian cysts are visualized withinthe cervix. ENDOMETRIUM 0.7 cm The endometrium demonstrates a normal, homogeneous echotexture. RIGHT OVARY 4.5 x 2.6 x 2.7 cm The right ovary demonstrates a normal echotexture with follicles. Thereis normal color Doppler flow. LEFT OVARY 3.7 x 2.0 x 2.8 cm The left ovary demonstrates a normal echotexture with follicles. There isnormal color Doppler flow. No fluid is present within the cul-de-sac. IMPRESSION: 1. Unremarkable ultrasound of the pelvis. 2. Normal color Doppler flow within the bilateral ovaries. Interpreted by: Electronically signed by VINCENT ESCOBAR II, MD, PHD [id number] 10:23:29 AM [facility] us Reece Juan Pablo DO [facility] US PROCEDURES Final Result from Last 3 Months Insurance [facility] [place] [facility] [place] Address: [facility] [id number] [place] [phone] Care Teams Surface Room Shop Optician Relationship Specialty Start Date End Date Cassandra Cifuentes MD [address] [place], [place] [phone] PCP - General Family Medicine 04/08/23 Donna Lopez NP [address] [place], [place] [phone] Nurse Practitioner Family Medicine 03/25/23
--- OUTSIDE RECORDS SUMMARY | 2025-04-08 15:23 | XMS_ITS | Encounter Summary ---
Author Organization [employer] [facility] tem Address [facility]-[id number] [address] [place] [address] Care Team Providers Care Bilingual Customer Service Specialist Name Role Phone Cassandra Cifuentes MD Primary Care Provider [phone] Encounter Details Date Type Department Care Team (Late st Contact Info) Description 04/07/2025 Telephone [facility] [address] [place] [address] Juan Moreau MD [address] [place] [address] Social History Tobacco Use Types Packs/Day Years [...] on file documented as of this encounter Miscellaneous Notes * Telephone Encounter - Juan Moreau MD - 04/07/2025 2:45 PM EDT Ultrasound ordered. documented in this encounter Plan of Treatment Upcoming Encounters Date Type Department Care Team (Late st Contact Info) Description 04/11/2025 3:30 PM EDT Office Visit [facility] [address] [place] [address] [place] [address] [place] [address] Paul Montoya MD [facility] [place] [address] 04/13/2025 10:00 AM EDT Appointment [facility] - Ultrasound [address] [place] [phone] Scheduled Orders Name Type Priority Associated Diagnoses Orde r Schedule Ultrasound retroperitoneal complete Imaging Routine Ureteral stone Expected: 04/07/2025, Expires: 10/08/2025 documented as of this encounter Visit Diagnoses Diagnosis Ureteral stone- Primary Calculus of ureter documented in this encounter Care Teams Bilingual Customer Service Specialist Relationship Specialty Start Date End Date Cassandra Cifuentes MD [address] [place] [address] PCP - General Family Medicine 12/22/24 documented as of this encounter
--- OUTSIDE RECORDS SUMMARY | 2025-04-08 15:23 | XMS_ITS | Encounter Summary ---
Author Organization [facility] Address [address] [place] [address] Care Team Providers Care Vp Strategic Planning Name Role Phone Donna Lopez NP Unavailable [phone] Cassandra Cifuentes MD Primary Care Provider [phone] Encounter Details Date Type Department Care Team (Late st Contact Info) Description 04/06/2025 Clinisync Result Encounter [facility] External Department Unsolicited Reece Almeida, DO [address] [place], [place] [id number] Social History Tobacco Use Types Packs/Day Years [...] EDT Office Visit [facility] [address] [place] [address] Kymberly Godinez, PA [address] [facility] [address] [place], [place] [address] 06/15/2025 1:00 PM EDT Office Visit [facility] [address] [facility] [place] [address] Kymberly Godinez, PA [address] [place] [address] documented as of this encounter Procedures Procedure Name Priority Date/Time Associated Diagnosis Comments TBH PREG QUANT HCG Routine 04/06/2025 2: 08 PM EDT MLR HEMOGLOBIN A1C Routine 04/06/2025 2: 08 PM EDT ALL THYROXINE (T4) FREE Routine 04/06/2025 2:08 PM EDT ALL THYROID STIM HORMONE Routine 04/06/2025 2:08 PM EDT ALL LUTEINIZING HORMONE Routine 04/06/2025 2:08 PM EDT ALL FOLLICLE STIMULATING HORMONE Routine 04/06/2025 2:08 PM EDT ALL DHEA SULFATE Routine 04/06/2025 2:08 PM EDT ALL CBC WITH AUTO DIFF Routine 04/06/2025 2:08 PM EDT documented in this encounter Results * ALL FOLLICLE STIMULATING HORMONE (04/06/2025 2:08 PM EDT) FSH 6.5 . mIU/mL TBH Comment: Adult Female Range Follicular phase 3.5 - 12.5 Ovulation phase 4.7 - 21.5 Luteal phase 1.7 - 7.7 Postmenopausal 25.8 - 134.8 Performed at: - [facility] [id number] Furniture Upholsterer: Brady Carballo PhD, Phone: [phone] 04/06/2025 2:08 PM EDT 04/06/2025 2:10 PM EDT Narrative CLINISYNC - 04/07/2025 4:07 AM EDT Reece Juan Pablo DO CLINISYNC Final Result Performing Organization Address [facility] Co de Phone Number [facility] * ALL LUTEINIZING HORMONE (04/06/2025 2:08 PM EDT) LUTEINIZING HORMONE(LH) 7.1 . mIU/mL TB Comment: Adult Female Range Follicular phase 2.4 - 12.6 Ovulation phase 14.0 - 95.6 Luteal phase 1.0 - 11.4 Postmenopausal 7.7 - 58.5 04/06/2025 2:08 PM EDT 04/06/2025 2:10 PM EDT Narrative CLINISYNC - 04/07/2025 4:07 AM EDT [facility] Final Result Performing Organization Address [facility] Co de Phone Number [facility] * ALL DHEA SULFATE (04/06/2025 2:08 PM EDT) DHEA-SULFATE 239.0 84.8 - 378.0 ug/dL TB 04/06/2025 2:08 PM EDT 04/06/2025 2:10 PM EDT Narrative CLINISYNC - 04/07/2025 4:07 AM EDT [facility] Final Result Performing Organization Address [facility] Co de Phone Number [facility] * ALL THYROXINE (T4) FREE (04/06/2025 2:08 PM EDT) FREE T4 0.96 0.76 - 1.46 ng/dL TB 04/06/2025 2:08 PM EDT 04/06/2025 2:10 PM EDT Narrative CLINISYNC - 04/06/2025 3:23 PM EDT [facility] Final Result Performing Organization Address [facility] Co de Phone Number [facility] * MLR HEMOGLOBIN A1C (04/06/2025 2:08 PM EDT) Pathologist [facility] GLYCOHEMOGLOBIN A1C 4.9 4.5 - 6.2 % [facility] Comment: ADA RECOMMENDED LIMIT 4.0 - 6.0 ADA THERAPEUTIC TARGET < 7.0 ACTION SUGGESTED > 7.0 ESTIMATED AVERAGE GLUCOSE 94 mg/dL TB 04/06/2025 2:08 PM EDT 04/06/2025 2:10 PM EDT Narrative CLINISYKY - 04/06/2025 3:00 PM EDT [facility] Final Result Performing Organization Address [facility] Phone Number [facility] * TBH PREG QUANT HCG (04/06/2025 2:08 PM EDT) Pathologist [facility] HCG QUANTITATIVE <1 mIU/mL [facility] Comment: 5-50 0.2-1 WEEK 50-500 1-2 WEEKS 100-5,000 2-3 WEEKS 500-10,000 3-4 WEEKS 1,000-50,000 4-5 WEEKS 10,000-100,000 5-6 WEEKS 15,000-200,000 6-8 WEEKS 10,000-100,000 2-3 MONTHS 04/06/2025 2:08 PM EDT 04/06/2025 2:10 PM EDT Narrative CLINISYKY - 04/06/2025 3:00 PM EDT [facility] Final Result Performing Organization Address [facility] Co de Phone Number [facility] * ALL THYROID STIM HORMONE (04/06/2025 2:08 PM EDT) Pathologist [facility] THYROID STIMULATING HORMONE 0.852 0.358 - 3.740 uIU/mL TBH 04/06/2025 2:08 PM EDT 04/06/2025 2:10 PM EDT Narrative ORIISYNC - 04/06/2025 3:00 PM EDT us Reece Juan Pablo DO [facility] * ([facility]NORMAL) ALL CBC WITH AUTO DIFF (04/06/2025 2:08 PM EDT) TB WBC 7.5 4.0 - 11.0 10 3/uL TBH TBH RBC 3.93(L) 4.20 - 5.40 10 6/uL TBH TBH HGB 12.5 12.0 - 16.0 g/dL TBH TBH HCT 36.8 36.0 - 48.0 % TBH TBH MCV 93.6 81.0 - 99.0 fL TBH TBH MCH 31.8 26.7 - 34.0 pg TBH TBH MCHC 34.0 29.9 - 35.2 g/dL TBH TBH RDW 12.2 11.0 - 15.0 % TBH TBH PLT 283 150 - 450 10 3/uL TBH TBH MPV 10.2 9.5 - 13.5 fL TBH NEUTROPHILS PERCENT AUTO 69.2 43.0 - 75.0 [...] 2:10 PM EDT Narrative CLINISYNC - 04/06/2025 2:35 PM EDT us Reece Juan Pablo DO CLINISYNC Final Result [facility] documented in this encounter Visit Diagnoses Not on filedocumented in this encounter Additional Health Concerns Assessment Noted Time PHQ-9 Depression Total Score: 7 10/25/19 25 4:30 PM EST documented as of this encounter Care Teams Vp Strategic Planning Relationship Specialty Start Date End Date Cassandra Cifuentes MD [address] [place] [address] PCP - General Family Medicine 04/08/23 Donna Lopez NP [address] [facility] [place] [address] Nurse Practitioner Family Medicine 03/25/23 documented as of this encounter
== END 2025-04-06 15:20 | disposition home or self-care (01) ==
LOC: LAB 15:19
PROVIDERS: Visit Provider Obstetrics & Gynecology
DX: N92.0 Excessive and frequent menstruation with regular cycle (principal); N93.9 Abnormal uterine and vaginal bleeding, unspecified
CPT/HCPCS: 88305

== ENCOUNTER 2025-04-22 10:00 | Outpatient (OUT) | payer OTHER, SELFPAY ==
--- OUTSIDE RECORDS SUMMARY | 2025-04-07 14:10 | XMS_ITS | Encounter Summary ---
Author Organization [facility] [employer] [facility] tem Address [id number] [address] [place] [address] Care Team Providers Care Cattle Examiner Name Role Phone Cassandra Cifuentes MD Primary Care Provider [phone] Encounter Details Date Type Department Care Team (Latest Contact Info) Description 04/07/2025 2:10 PM EDT - 04/07/2025 11:59 PM EDT Hospital Encounter [facility] - Radiology [address] [place] [phone] Ureteral stone Discharge Disposition: Home Social History Tobacco Use Types Packs/Day Years Used Date Smoking Tobacco: Never Smokeless Tobacco: Never Alcohol Use Standard Drinks/Week Comments No 0 (1 standard drink = 0.6 oz pur e alcohol) Childcare Answer Date Recorded Childcare Unknown 03/10/2019 Employment Answer Date Recorded Employment Unknown 03/10/2019 Hunger Screening Answer Date Recorded Within the past 12 months we worried whether our food would run out before we got money to buy more. Never True 12/22/2024 Within the past 12 months th e food we bought just didn't last and we didn't have money to get more. Never True 12/22/2024 Purpose - Life Answer Date Recorded Purpose and direction in life Unknown Comments No Sex and Gender Information Value Date Recorded Sex Assigned at Not on file Legal Sex Female 11:51 AM EDT Gender Identity Not on file Sexual Orientation Not on file documented as of this encounter Medications at Time of Discharge dicyclomine (BENTYL) 20 mg tablet Take 1 tablet (20 mg total) by mouth in the morning and 1 tablet (20 mg total) before bedtime. 20 tablet 09/20/2023 SUMAtriptan (IMITREX) 50 mg tablet ketorolac (TORADOL) 10 mg tablet Take 1 tablet (10 mg total) by mouth every 6 (six) hours as needed for pain. 20 tablet 12/18/2024 5 ondansetron ODT (ZOFRAN ODT) 4 mg disintegrating tablet Dissolve 1 tablet (4 mg total) on tongue every 8 (eight) hours as needed for nausea for up to 10 doses. 10 tablet 12/18/2024 5 tamsulosin (FLOMAX) 0.4 mg capsule Take 1 capsule (0.4 mg total) by mouth in the morning. 30 capsule 2 12/22/2024 5 documented as of this encounter Plan of Treatment Upcoming Encounters Date Type Department Care Team (Late st Contact Info) Description 04/12/2026 1:15 PM EDT Office Visit [facility] [address] [place] [address] [place] [address] Paul Montoya MD [address] [place], [place] [id number] documented as of this encounter Procedures Procedure Name Priority Date/Time Associated Diagnosis Comments XR ABDOMEN AP 1 VW Routine 04/07/2025 2: 26 PM EDT Ureteral stone documented in this encounter Results * X-ray abdomen ap 1 view (04/07/2025 2:26 PM EDT) Anatomical Region Laterality Modality Body, Abdomen N/A Computed Radiogr aphy 04/10/2025 4:22 AM EDT Narrative 04/10/2025 4:27 AM EDT History: Nephrolithiasis Exam/Technique: Supine AP abdomen Comparison: Noncontrast CT of the abdomen and pelvis from 12/18/2024 Findings: One apparent 4 mm left renal calculus demonstrated. No radiodense right renal calculi or ureteral calculi on either side are displayed. 1 small rounded calculation inferiorly in left side of the pelvis appears to represent a phlebolith. No abnormalities of the abdominal gas pattern are demonstrated on this single projection. No additional abnormalities are suggested.. IMPRESSION: 1 left renal calculus redemonstrated with no ureteral calculi suggested. Finalized by Manny Fowler MD on 04/10/2025 4:27 AM Procedure Note Manny Fowler MD - 04/10/2025 History: Nephrolithiasis Exam/Technique: Supine AP abdomen Comparison: Noncontrast CT of the abdomen and pelvis from 12/18/2024 Findings: One apparent 4 mm left renal calculus demonstrated. Noradiodense right renal calculi or ureteral calculi on either side aredisplayed. 1 small rounded calculation inferiorly in left side of thepelvis appears to represent a phlebolith. No abnormalities of the abdominal gas pattern are demonstrated on thissingle projection. No additional abnormalities are suggested.. IMPRESSION: 1 left renal calculus redemonstrated with no ureteral calculisuggested. Finalized by Manny Fowler MD on 04/10/2025 4:27 AM Juan Moreau MD [facility] Final Result documented in this encounter Visit Diagnoses Diagnosis Ureteral stone Calculus of ureter documented in this encounter Care Teams Cattle Examiner Relationship Specialty Start Date End Date Cassandra Cifuentes MD [address] [place] [address] PCP - General Family Medicine 12/22/24 documented as of this encounter
--- OUTSIDE RECORDS SUMMARY | 2025-04-11 15:30 | XMS_ITS | Encounter Summary ---
Author Organization [facility] tem Address [id number] [address] [place] [address] Care Team Providers Care Amplifier Mechanic Name Role Phone Cassandra Cifuentes MD Primary Care Provider [phone] Reason for Visit * Reason Comments Follow-up Encounter Details Date Type Department Care Team (Latest Contact Info) Description 04/11/2025 3:30 PM EDT [facility] [address] [place] [address] [place] [address] [place] [phone] Paul Montoya MD [facility] [place] [address] Nephrolithiasis (Primary Dx) Social History Tobacco Use Types Packs/Day Years [...] got money to buy more. Never True 04/11/2025 Within the past 12 months th e food we bought just didn't last and we didn't have money to get more. Never True 04/11/2025 Purpose - Life Answer Date Recorded Purpose and direction in life Unknown Comments No Sex and Gender Information Value Date Recorded Sex Assigned at Not on file Legal Sex Female 11:51 AM EDT Gender Identity Not on file Sexual Orientation Not on file documented as of this encounter Last Filed Vital Signs Vital Sign Reading Time Taken Comments Blood Pressure 110/68 04/11/2025 4:08 PM EDT Pulse 67 04/11/2025 4:08 PM EDT Temperature - - Respiratory Rate - - Oxygen Saturation - - Inhaled Oxygen Concentration - - Weight 78.5 kg (173 lb) 04/11/2025 4:08 PM EDT Height 170.2 cm (5' 7 ) 04/11/2025 4:08 PM EDT Body Mass Index 27.1 04/11/2025 4:08 PM EDT documented in this encounter Progress Notes * Paul Montoya MD - 04/11/2025 3:30 PM EDT Images from the original note were not included. [address] [place] [address] [address] [facility] [id number] Patient: Chelsy Bhatti Date of : 1995 Encounter Date: 04/11/2025 History of Present Illness: The patient is a 29 y.o. female, an established patient, and is here for Chief Complaint Patient presents with Follow-up . History nephrolithiasis. She did appear to pass the stone given her lack of pain. Also I did review her KUB as compared to her CAT scan. Full discussion as how to proceed below as well. She had some laboratory studies these were normal as well. Urinalysis today: No results for input(s): EXTPOCURCO , EXTPOCURCH , EXTPOCAPP , EXTPOCURBS , EXTPOCURBIL , EXTPOCUKET , EXTPOCUSPG , EXTPOCUHGB , EXTPOCUPRO , EXTPOCUURO , EXTPOCULEU , EXTPOCUNIT , EXTPOCUWBC , EXTPOCUBLD , EXTPOCURBC , EXTPOCUCRY , EXTPOCUBAC , EXTPOCUTREP , EXTPOCUPH , EXTPOCUL EE in the last 72 hours. Last BUN and creatinine: Lab Results Component Value Date BUN 15 12/18/2024 Lab Results Component Value Date CREATININE 0.73 12/18/2024 Last PSA: No results found for: PSA No results found for: PROSTATICSP Past Medical, Family, and Social History Update: The following portions of the patient's history were reviewed and updated as appropriate: allergies, current medications, past family history, past medical history, past social history, past surgicalhistory and problem list. Past Medical History: Diagnosis Date Asthma Kidney stones History reviewed. No pertinent surgical history. Family History Problem Relation Age of Onset Diabetes Mother Diabetes Maternal Grandmother Hypertension Maternal Grandmother Diabetes Sister Miscarriages / Stillbirths Sister Current Outpatient Medications Medication Sig Dispense Refill dicyclomine (BENTYL) 20 mg tablet Take 1 tablet (20 mg total) by mouth in the morning and 1 tablet (20 mg total) before bedtime. 20 tablet 0 SUMAtriptan (IMITREX) 50 mg tablet No current facility-administered medications for this visit. (All medications reviewed and updated by provider since last office visit or hospitalization) Allergies: Amoxicillin Tobacco History: Social History Tobacco Use Smoking Status Never Smokeless Tobacco Never (If patient a smoker, smoking cessation counseling offered) Social History: Social History Substance and Sexual Activity Alcohol Use No Review of Systems: General: Negative for chills and fever. Cardiovascular: Negative for chest pain and shortness of breath. Gastrointestinal: Negative for constipation, diarrhea, nausea, and vomitting. -per HPI Physical Exam: BP 110/68 Pulse 67 Ht 170.2 cm (5' 7 ) Wt 78.5 kg (173 lb) BMI 27.10 kg/m?? General Alert., Cooperative. Not in acute distress. Non-toxic. Orientation - Oriented X3. Head and Neck Normocephalic, atraumatic with no lesions. No abnormal movements. Trachea - midline. Integumentary Normal coloration of skin. Skin Moisture - normal skin moisture. Chest and Lung Exam Quiet, even and easy respiratory effort with no use of accessory muscles. Neurologic NON-focal Assessment and Plan: Chelsy was seen today for follow-up. Diagnoses and all orders for this visit: Nephrolithiasis - X-ray abdomen ap 1 view; Future Problem List High Nephrolithiasis - Primary Overview ==== 04/11/2025 ==== uric acid parathyroid hormone were fine. Appears she passed her distal stone onthe left. Still has a nonobstructing stone left. Hounsfield units appeared to be amenable to ESWL. Skin to stone distance as well. We discussed ESWL versus ureteroscopy verses observation. She had chooses the latter. We will get a KUB in 1 year. Relevant Orders X-ray abdomen ap 1 view Follow-up: KUB 1 year return clinic Paul Montoya MD Independent visualization of tracing, image or specimen was made: Multiple CAT scans as well as KUB. This note was created with the assistance of a speech recognition program. While intending to generate a timely document that accurately reflects the content of the visit, no guarantee can be provided that every grammatical or spelling mistake has been or will be identified or corrected. Thank you for your understanding. documented in this encounter Plan of Treatment Upcoming Encounters Date Type Department Care Team (Late st Contact Info) Description 04/12/2026 1:15 PM EDT Office Visit [facility] [address] [place] [address] [place] [address] [address] Paul Montoya MD [address] [place] [address] Scheduled Orders Name Type Priority Associated Diagnoses Orde r Schedule X-ray abdomen ap 1 view Imaging Routine Nephrolithiasis Expected: 04/11/2026 (Approximate), Expires: 04/11/2027 documented as of this encounter Visit Diagnoses Diagnosis Nephrolithiasis- Primary Calculus of kidney documented in this encounter Care Teams Amplifier Mechanic Relationship Specialty Start Date End Date Cassandra Cifuentes MD [address] [place] [address] PCP - General Family Medicine 12/22/24 documented as of this encounter
--- OUTSIDE RECORDS SUMMARY | 2025-04-13 09:39 | XMS_ITS | Encounter Summary ---
Author Organization [facility] tem Address [id number] [address] [place] [address] Care Team Providers Care Beam Sealer Name Role Phone Cassandra Cifuentes MD Primary Care Provider [phone] Encounter Details Date Type Department Care Team (Latest Contact Info) Description 04/13/2025 9:39 AM EDT - 04/13/2025 11:59 PM EDT Hospital Encounter [facility] - Ultrasound [address] [place] [phone] Ureteral stone Discharge Disposition: Home Social History [...] tablet 09/20/2023 SUMAtriptan (IMITREX) 50 mg tablet documented as of this encounter Plan of Treatment Upcoming Encounters Date Type Department Care Team (Late st Contact Info) Description 04/12/2026 1:15 PM EDT Office Visit [facility] [address] [facility] [place] [phone] Paul Montoya MD [address] [place] [address] documented as of this encounter Procedures Procedure Name Priority Date/Time Associated Diagnosis Comments US RETROPERITONEAL COMPLETE Routine 04/13/2025 10:43 AM EDT Ureteral stone documented in this encounter Results * Ultrasound retroperitoneal complete (04/13/2025 10:43 AM EDT) Anatomical Region Laterality Modality Body Ultrasound 04/18/2025 2:15 PM EDT Narrative 04/18/2025 2:17 PM EDT US RETROPERITONEAL COMPLETE: 04/13/2025 10:05 AM Clinical: History of left ureteral stone and hydronephrosis. EXAM: RENAL and BLADDER ULTRASOUND Real-time sonography kidneys and bladder performed. Comparison: CT 12/18/2024 Right kidney measures 12.5 cm and left kidney measures 12.9 cm in length. No hydronephrosis. Small echogenic focus in the left mid kidney probably represents a small stone seen previously on CT. Bladder shows no wall thickening. Bilateral ureteral jets seen. Bladder volume is 952 mL. Post void residual 191 mL. Impression: * No hydronephrosis. * Probable small stone left mid kidney. Finalized by Anuj Bui MD on 04/18/2025 2:17 PM Procedure Note Anuj Bui MD - 04/18/2025 US RETROPERITONEAL COMPLETE: 04/13/2025 10:05 AM Clinical: History of left ureteral stone and hydronephrosis. EXAM: RENAL and BLADDER ULTRASOUND Real-time sonography kidneys and bladder performed. Comparison: CT 12/18/2024 Right kidney measures 12.5 cm and left kidney measures 12.9 cm in length. No hydronephrosis. Small echogenic focus in the left mid kidney probably represents a smallstone seen previously on CT. Bladder shows no wall thickening. Bilateral ureteral jets seen. Bladder volume is 952 mL. Post void residual 191 mL. Impression: * No hydronephrosis. * Probable small stone left mid kidney. Finalized by Anuj Bui MD on 04/18/2025 2:17 PM us Juan Moreau MD IMG US ORDERABLES Final Res ult documented in this encounter Visit Diagnoses Diagnosis Ureteral stone Calculus of ureter documented in this encounter Care Teams Beam Sealer Relationship Specialty Start Date End Date Cassandra Cifuentes MD [address] [place] [address] PCP - General Family Medicine 12/22/24 documented as of this encounter
--- OUTSIDE RECORDS SUMMARY | 2025-04-22 10:05 | XMS_ITS | Clinical Summary ---
Author Organization [facility] Address [address] [place] [address] Care Team Providers Care Carpet Loom Fixer Name Role Phone Donna Lopez NP Unavailable Cassandra Cifuentes MD Primary Care Provider [phone] Allergies Active Allergy Reactions Criticality Noted Date [...] BCP OB [address] [place] [address] Reece Almeida DO Pre-op examination; Abnormal uterine bleeding (AUB); Menorrhagia with irregular cycle; Pelvic pain 04/06/2025 Clinisync Result Encounter [facility] Unsolicited Reece Almeida DO 03/10/2025 4:50 PM EDT Office Visit [facility] [address] [address] [place] [address] Chaparro Garza DPM Onychocryptosis (Primary Dx); Abscess of toe, right; Toe pain, right 03/10/2025 9:30 AM EDT Ancillary Procedure [facility] [address] [place] [phone] Menorrhagia with irregular cycle; Endometriosis; Abnormal uterine bleeding (AUB) 03/10/2025 Travel 02/28/2025 1:40 PM EDT Office Visit [facility] [address] [place] [address] Reece Almeida DO Menorrhagia with irregular cycle; Endometriosis; Abnormal uterine bleeding (AUB) 02/28/2025 Bamboo flowsheet [facility] [address] [place] [address] Reece Almeida DO 02/17/2025 4:10 PM EDT Office Visit [facility] [address] [address] [place] [address] Chaparro Garza DPM Abscess of toe, right (Primary Dx); Onychocryptosis; Toe pain, right 02/17/2025 Bamboo flowsheet [facility] [address] [address] [place] [phone] Chaparro Garza DPM 02/17/2025 Travel from Last 3 Months Family History [...] EDT Office Visit [facility] [address] [place] [address] Kymberly Godinez PA [address] [place] [address] 06/15/2025 1:00 PM EDT Office Visit [facility] OB [address] [place] [address] Kymberly Godinez PA [address] [place] [address] [place] [address] Health Maintenance Due Date Last Done Comments Influenza Vaccine (#1) 2025 Procedures Procedure Name Priority Date/Time Associated Diagnosis Comments ENDOMETRIAL BIOPSY Routine 04/06/2025 2: 50 PM EDT Abnormal uterine bleeding (AUB) Menorrhagia with irregular cycle POCT , URINE Routine 04/06/2025 2:44 PM EDT Pre-op examination Abnormal uterine bleeding (AUB) Menorrhagia with irregular cycle Pelvic pain ALL DEHYDROEPIANDROSTERONE Routine 04/06 2:08 PM EDT ALL FOLLICLE STIMULATING HORMONE Routine 04/06/2025 2:08 PM EDT ALL LUTEINIZING HORMONE Routine 04/06/20 25 2:08 PM EDT ALL DHEA SULFATE Routine 04/06/2025 2:08 PM EDT ALL THYROXINE (T4) FREE Routine 04/06/20 25 2:08 PM EDT MLR HEMOGLOBIN A1C Routine 04/06/2025 2: 08 PM EDT [facility] PREG QUANT HCG Routine 04/06/2025 2: 08 PM EDT ALL THYROID STIM HORMONE Routine 025 2:08 PM EDT ALL CBC WITH AUTO DIFF Routine 2:08 PM EDT US PELVIC COMPLETE W/ TV Routine 025 10:34 AM EDT Menorrhagia with irregular cycle [...] urine manually resulted (04/06/2025 2:44 PM EDT) Pathologist [facility] Preg Test, Ur Negative Negative Urine 04/06/2025 2:44 PM EDT Reece Almeida DO POINT OF CARE TEST ENTER/EDIT OR DERABLES Final Result * [facility] PREG QUANT HCG (04/06/2025 2:08 PM EDT) Pathologist [facility] HCG QUANTITATIVE <1 mIU/mL [facility] Comment: 5-50 0.2-1 WEEK 50-500 1-2 WEEKS 100-5,000 2-3 WEEKS 500-10,000 3-4 WEEKS 1,000-50,000 4-5 WEEKS 10,000-100,000 5-6 WEEKS 15,000-200,000 6-8 WEEKS 10,000-100,000 2-3 MONTHS 04/06/2025 2:08 PM EDT 04/06/2025 2:10 PM EDT Narrative CLINISYNC - 04/06/2025 3:00 PM EDT Reece Juan Pablo DO CLINISYNC Final Result Performing Organization Address City/[facility]/ZIP Co de Phone Number [facility] * MLR HEMOGLOBIN A1C (04/06/2025 2:08 PM EDT) GLYCOHEMOGLOBIN A1C 4.9 4.5 - 6.2 % [facility] Comment: ADA RECOMMENDED LIMIT 4.0 - 6.0 ADA THERAPEUTIC TARGET < 7.0 ACTION SUGGESTED > 7.0 ESTIMATED AVERAGE GLUCOSE 94 mg/dL TB 04/06/2025 2:08 PM EDT 04/06/2025 2:10 PM EDT Narrative CLINISYNC - 04/06/2025 3:00 PM EDT FraudMetrixo DO CLINSUSANAWV Final Result Performing Organization Address [facility] Co de Phone Number [facility] * ALL THYROXINE (T4) FREE (04/06/2025 2:08 PM EDT) FREE T4 0.96 0.76 - 1.46 ng/dL TB 04/06/2025 2:08 PM EDT 04/06/2025 2:10 PM EDT Narrative CLINISYNC - 04/06/2025 3:23 PM EDT Reecelauro Herberto DO CLINISYNC Final Result Performing Organization Address [facility] Co de Phone Number [facility] * ALL THYROID STIM HORMONE (04/06/2025 2:08 PM EDT) THYROID STIMULATING HORMONE 0.852 0.358 - 3.740 uIU/mL TB 04/06/2025 2:08 PM EDT 04/06/2025 2:10 PM EDT Narrative CLINISYNC - 04/06/2025 3:00 PM EDT Reece Juan Pablo DO CLINISYNC Final Result [facility] * ALL LUTEINIZING HORMONE (04/06/2025 2:08 PM EDT) LUTEINIZING HORMONE(LH) 7.1 . mIU/mL [facility] Comment: Adult Female Range Follicular phase 2.4 - 12.6 Ovulation phase 14.0 - 95.6 Luteal phase 1.0 - 11.4 Postmenopausal 7.7 - 58.5 04/06/2025 2:08 PM EDT 04/06/2025 2:10 PM EDT Narrative CLINISYNC - 04/07/2025 4:07 AM EDT Reece Juan Pablo DO CLINISYNC Final Result Performing Organization Address [facility]/ZIP Co de Phone Number [facility] * ALL FOLLICLE STIMULATING HORMONE (04/06/2025 2:08 PM EDT) FSH 6.5 . mIU/mL [facility] Comment: Adult Female Range Follicular phase 3.5 - 12.5 Ovulation phase 4.7 - 21.5 Luteal phase 1.7 - 7.7 Postmenopausal 25.8 - 134.8 Performed at: [address] [id number] Stemming Machine Operator: Brady Carballo PhD, Phone: [phone] 04/06/2025 2:08 PM EDT 04/06/2025 2:10 PM EDT Narrative CLINISYNC - 04/07/2025 4:07 AM EDT Reece Juan Pablo DO CLINISYNC Final Result [facility] * ALL DHEA SULFATE (04/06/2025 2:08 PM EDT) Pathologist [facility] DHEA-SULFATE 239.0 84.8 - 378.0 ug/dL [facility] 04/06/2025 2:08 PM EDT 04/06/2025 2:10 PM EDT Narrative CLINISYNC - 04/07/2025 4:07 AM EDT [place] Juan Pablo DO CLINISYNC Final Result [facility] * ALL DEHYDROEPIANDROSTERONE (04/06/2025 2:08 PM EDT) Pathologist [facility] DHEA, SERUM TNP . ng/dL TB Comment: Test not performed. Insufficient specimen to perform or complete analysis. CONTACTED PRECIOUS AT YOUR FACILITY ON 04-13-2025 This test was developed and its performance characteristics determined by [facility]. It has not been cleared or approved by the Food and Drug Administration. 04/06/2025 2:08 PM EDT 04/06/2025 2:10 PM EDT [facility] CLINISYWV - 04/13/2025 2:08 PM EDT [facility] Final Result Performing Organization Address City/[facility]/ZIP Co de Phone Number [facility] * (ABNORMAL) ALL CBC WITH AUTO DIFF (04/06/2025 2:08 PM EDT) [facility] TB WBC 7.5 4.0 - 11.0 10 [...] Reece Juan Pablo DO CLINISYNC Final Result [facility] * US Pelvis w/ TV (03/10/2025 10:34 [...] II, MD, PHD at 11-Mar-2025 10:23:29 AM [facility] Procedure Note Vincent Escobar MD - [...] signed by VINCENT ESCOBAR II, MD, PHD [id number] 10:23:29 AM [facility] us Reece Juan Pablo DO [facility] US PROCEDURES Final Result from Last 3 Months Insurance [facility] [place] Address: [facility] [address] [place] [address] Care Teams Carpet Loom Fixer Relationship Specialty Start Date End Date Cassandra Cifuentes MD [address] [facility] [place] [address] PCP - General Family Medicine 04/08/23 Donna Lopez NP [address] [facility] [address] [place], [place] [id number] Nurse Practitioner Family Medicine 03/25/23
--- OUTSIDE RECORDS SUMMARY | 2025-04-22 10:05 | XMS_ITS | Encounter Summary ---
Author Organization [employer] [facility] tem Address [id number] [address] [place] [address] Care Team Providers Care Bath Solution Maker Name Role Phone Cassandra Cifuentes MD Primary Care Provider [phone] Encounter Details Date Type Department Care Team (Latest Contact Info) Description 04/13/2025 Travel Social History Tobacco Use Types Packs/Day [...] Visit [facility] [address] [place] [address] [place] [phone] Paul Montoya MD [address] [place], [place] [phone] documented as of this encounter Visit Diagnoses Not on filedocumented in this encounter Care Teams Bath Solution Maker Relationship Specialty Start Date End Date Casasndra Cifuentes MD [address] [place] [address] PCP - General Family Medicine 12/22/24 documented as of this encounter
--- OUTSIDE RECORDS SUMMARY | 2025-04-22 10:05 | XMS_ITS | Clinical Summary ---
Author Organization [employer] tem Address [id number] [address] [place] [address] Care Team Providers Care Fusing Line Inspector Name Role Phone Cassandra Cifuentes MD Primary Care Provider [phone] Allergies Active Allergy Reactions Criticality Noted Date Comments Amoxicillin Rash Low 09/20/2023 Medications dicyclomine (BENTYL) 20 mg tablet Take 1 tablet (20 mg total) by mouth in the morning and 1 tablet (20 mg total) before bedtime. 20 tablet 09/20/20 23 Active SUMAtriptan (IMITREX) 50 mg tablet Active ketorolac (TORADOL) 10 mg tablet Take 1 tablet (10 mg total) by mouth every 6 (six) hours as needed for pain. 20 tablet 12/19/19 25 025 Discontinued ondansetron ODT (ZOFRAN ODT) 4 mg disintegrating tablet Dissolve 1 tablet (4 mg total) on tongue every 8 (eight) hours as needed for nausea for up to 10 doses. 10 tablet 12/19/19 25 025 Discontinued tamsulosin (FLOMAX) 0.4 mg capsule Take 1 capsule (0.4 mg total) by mouth in the morning. 30 capsule 2 12/23/19 25 025 Discontinued Active Problems Problem Noted Date Diagnosed Date Nephrolithiasis 04/11/2025 Overview (04/11/2025): ==== 04/11/2025 ==== uric acid parathyroid hormone were fine. Appears she passed her distal stone on the left. Still has a nonobstructing stone left. Hounsfield units appeared to be amenable to ESWL. Skin to stone distance as well. We discussed ESWL versus ureteroscopy verses observation. She had chooses the latter. We will get a KUB in 1 year. Irregular menses 07/09/2017 Encounters Date Type Department Care Team Description 04/13/2025 9:39 AM EDT - 04/13/2025 11:59 PM EDT Hospital Encounter [facility] - Ultrasound [address] [place] [address] Ureteral stone Discharge Disposition: Home 04/13/2025 Travel 04/11/2025 3:30 PM EDT Office Visit [facility] [address] [phone] Paul Montoya MD Nephrolithiasis (Primary Dx) 04/07/2025 2:10 PM EDT - 04/07/2025 11:59 PM EDT Hospital Encounter [facility] - Radiology [address] [place] [address] Ureteral stone Discharge Disposition: Home 04/07/2025 [facility] [address] [place] [phone] Juan Moreau MD 04/07/2025 Travel from Last [...] Pulse 67 04/11/2025 4:08 PM EDT Temperature 36.6 C (97.9 F) 12/18/2024 4:10 AM EDT Respiratory Rate 15 12/18/2024 6:04 AM EDT Oxygen Saturation 99% 12/18/2024 6:04 AM EDT Inhaled Oxygen Concentration - - Weight 78.5 kg (173 lb) 04/11/2025 4:08 PM EDT Height 170.2 cm (5' 7 ) 04/11/2025 4:08 PM EDT Body Mass Index 27.1 04/11/2025 4:08 PM EDT Plan of Treatment Upcoming Encounters Date Type Department Care Team (Late st Contact Info) Description 04/12/2026 1:15 PM EDT Office Visit [facility] [address] [place] [address] [place] [address] [address] Paul Montoya MD [address] [place] [address] Health Maintenance Due Date Last Done Comments Depression Screening 2007 Adult BMI Follow Up Plan 2013 DTaP,Tdap and Td Vaccines (1 - Tdap) 2014 Pap Smear 07/09/2020 07/09/2017 Influenza Vaccine 05/30/2025 Adult BMI Screening 04/11/2026 04/11/2025 Tobacco Screening 04/11/2026 04/11/2025 Medical Devices Not on file Procedures Procedure Name Priority Date/Time Associated Diagnosis Comments US RETROPERITONEAL COMPLETE Routine 04/13/2025 10:43 AM EDT Ureteral stone XR ABDOMEN AP 1 VW Routine 04/07/2025 2: 26 PM EDT Ureteral stone URIC ACID Routine 04/07/2025 2:09 PM EDT Calculus of ureter PARATHYROID HORMOME, INTACT Routine 04/07/2025 2:09 PM EDT Calculus of ureter PAP SMEAR Routine 07/09/2017 12:32 PM EDT from Last 3 Months or Most Recently Relevant to Health Maintenance Results * Ultrasound retroperitoneal complete (04/13/2025 10:43 [...] Anuj Bui MD on 04/18/2025 2:17 PM Juan Moreau MD IMG US ORDERABLES Final Res ult * X-ray abdomen ap 1 view (04/07/2025 [...] on 04/10/2025 4:27 AM Juan Moreau MD [facility] ORDE RABLES Final Result * Parathyroid Hormone, intact (04/07/2025 2:09 PM EDT) PTH INTACT 42 12 - 88 pg/mL 04/07/2025 8:23 PM EDT [facility] Blood Venous blood / Unknown Venipuncture / Unknown 04/07/2025 2:09 PM EDT 04/07/2025 2:09 PM EDT Juan Moreau MD LAB BLOOD ORDERABLES Final Result [facility] [address] [facility] [address] [place] [address], * Uric acid (04/07/2025 2:09 PM EDT) URIC ACID 4.8 2.6 - 7.2 mg/dL 04/07/2025 8:12 PM EDT [facility] Blood Venous blood / Unknown Venipuncture / Unknown 04/07/2025 2:09 PM EDT 04/07/2025 2:09 PM EDT Juan Moreau MD LAB BLOOD ORDERABLES Final Result Performing Organization Address City/[facility]/ZIP Co de Phone Number [facility] [address] [place] [address], * Pap Smear (07/09/2017 12:32 PM EDT) Cervical TP 07/09/2017 12:3 2 PM EDT 07/10/2017 12:33 PM EDT Narrative COPATH - 07/14/2017 9:32 AM EDT [facility] [place], [place] [address] Gynecologic Cytology Consultation Patient Name: CHELSY RAMSEY : 1995 (Age: 21) Gender: F Taken: 07/09/2017 Reported: 07/14/2017 Physician(s): Ondina Albarran CNM ( ) Copy To: Med. Rec. #: [id number] Acct: # [id number] Final Cytologic Interpretation Cervical (with or without endocervical) ThinPrep: Satisfactory for evaluation. A transformation zone component is present. NEGATIVE FOR INTRAEPITHELIAL LESION OR MALIGNANCY. michelle/07/14/2017 Electronically Signed Out By [facility] (ASCP) Date of Last Menstrual Period: 07-01-17 Other Clinical Conditions: Screening/Routine z01.419 Scalehouse Attendant exam wo/abn findings Source of Specimen Cervical (with or without endocervical) ThinPrep Thin Prep Pap (STRAIGHT EDGER) Fee Code(s): G0145 The Pap test is a screening test with an inherent, but low, probability of error. The Pap test is primarily effective for the diagnosis and prevention of squamous cell carcinoma. Regular screening is critical for prevention. ThinPrep liquid-based slides, which meet the Hand Knitter criteria for automated screening, have been screened by the ThinPrep Imaging System (as of 06/15/07) along with an additional manual rescreening by a senior application security consultant and, if indicated, by a pathologist.Ondina Albarran CNM 07/11/2017 Ondina Albarran DAIRY BAR MANAGER-[facility] PATHOLOGY/CYTOLOGY ORDERAB LES Final Result COPATH from Last 3 Months or Most Recently Relevant to Health Maintenance Insurance AET Care Teams Fusing Line Inspector Relationship Specialty Start Date End Date Cassandra Cifuentes MD [address] [place] [address] PCP - General Family Medicine 12/22/24
--- OUTSIDE RECORDS SUMMARY | 2025-04-22 10:05 | XMS_ITS | Patient Health Record ---
Author Organization [facility] Address [address] [place], [place] [address] Care Team Providers Care Lining Cementer Name Role Phone Sascha Tejada Primary Care Provider Allergies Allergen (clinical drug ingredient) Drug/Non Drug [...] Problem Status W/U Status Risk Notes Problem 387078608 Migraine without aura and without status migrainosus, not intractable (G43.009) Active confirmed Problem New daily persistent headache (disorder) (1672170423424 05) Persistent headaches (R51.9) Active confirmed Comment:-Patient [...] and father expressed understanding., Problem Depression screening (721028250) Screening for depression (Z13.31) Active confirmed Description:Dep r ession screening Problem Dyspnea (974384995) Breath shortness (R06.02) 009 Active confirmed Description:Shor tness of breath Problem Insomnia (897099757) Insomnia (G47.00) Active confirmed Problem Migraine (91420840) Migraine (G43.909) Active confirmed Problem Dysmenorrhea (254506158) Menses painful (N94.6) Active confirmed Comment:Will refer to RECOVERY OPERATOR HELPER for further evaluation of painful irregular menstruation; prefers a women Can continue with heat for comfort as needed, Problem Mixed anxiety and depressive disorder (157924524) Anxiety and depression (F41.9) Active confirmed Problem Medication refill (V68.1) (Z76.0) Active confirmed Problem Well child visit (359540688) FEMALE ADOLESCENT WELL VISIT (V20.2) (V20.2) Active confirmed Comment:Instruc t ed to continue to take medications as needed, return if symptoms worsen or do not get better. Instructed on immunizations that would be required prior to starting school. Patient verbalizes and agrees with plan of care., Problem Costal chondritis (47660888) Costal chondritis (M94.0) Active confirmed Comment:-Pt has [...] plan,Description :Costalchondriti s Problem Pain in wrist (11546884) Wrist pain, left (M25.532) Active confirmed Comment:Resolved with PT. X-rays negative for fracture. Doing much better... F/u as needed., Problem Headache (46366521) New onset of headaches (784.0) (784.0) Active confirmed Comment:Started last week, no history of headaches. No focal neurologic signs. Neurology referral., Problem Contact dermatitis (28727409) Dermatitis, contact (L25.9) Active confirmed Comment:potentia lly resolving contact dermatitis ? though if it is more eczema than contact encouraged to use routine moisturizing (eucerin) if not resolving, can trial hydrocortisone, Problem Asthma without status asthmaticus (94810330) Asthma, mild (J45.909) Active confirmed Comment:-SOB and issues with breathing have improved since last visit -Ventolin inhaler use decreasing; now only using 1-2x/week -No longer having chest pain -Not symptoms at night; not affecting ADLs -If symptoms worsen or return; return to office; PVU, Problem Sprain and strain of ribs (S23.41XA) 009 Active confirmed Problem Well child visit (020854288) Routine or child health check (V20.2) (V20.2) 010 Active confirmed Problem Otitis media of left ear (0851818783443 100) Left otitis media (H66.92) Active confirmed [...] Date Coverage End Date [employer] [address] [place] [address] [place], [place] [id number] Chelsy Bhatti Self - patient is the insured [address] [facility] [address] [address] [place] [address] [id number] Chelsy Bhatti Self - patient is the insured 2 Medical (General) History Medical History History ICD Code Anxiety and depression Asthma, mild Surgical History Surgery Date(Month/Year) endometrial ablation 2018
== END 2025-04-22 10:01 | disposition home or self-care (01) ==
LOC: PST 10:01
PROVIDERS: Visit Provider Obstetrics & Gynecology
DX: Z01.812 Encounter for preprocedural laboratory examination (principal); N80.9 Endometriosis, unspecified; N93.9 Abnormal uterine and vaginal bleeding, unspecified; N92.0 Excessive and frequent menstruation with regular cycle; R10.2 Pelvic and perineal pain
CPT/HCPCS: 36415; 82627

== ENCOUNTER 2025-05-06 06:08 | Day surgery (SDC) | payer OTHER, SELFPAY ==
[2025-04-22 10:37] VITALS: BP 113/69; PULSE 64; TEMP 36.3; O2SAT 100; BMI 25.0
[2025-05-06] VITALS (12 sets, daily range): BP systolic 106–124; BP diastolic 58–74; PULSE 60–103; TEMP 35.8–36.4; O2SAT 97–100
--- OUTSIDE RECORDS SUMMARY | 2025-05-06 06:10 | XMS_ITS | Clinical Summary ---
Author Organization [facility] Address [address] [place] [address] Care Team Providers Care Process Safety Manager Name Role Phone Donna Lopez NP Unavailable [phone] Cassandra Cifuentes MD Primary Care Provider [phone] Allergies Active Allergy Reactions Criticality Noted Date [...] Encounters Date Type Department Care Team Description 04/22/2025 Clinisync Result Encounter [facility] External Department Unsolicited Reece Almeida DO 04/06/2025 2:30 PM EDT Procedure [facility] [address] Reece Almeida, Pre-op examination; Abnormal uterine bleeding (AUB); Menorrhagia with irregular cycle; Pelvic pain 04/06/2025 Clinisync Result Encounter [facility] External Department Unsolicited Reece Almeida, 03/10/2025 4:50 PM EDT Office Visit [facility] [address] [facility] [address] [place] [phone] Chaparro Garza DPM Onychocryptosis (Primary Dx); Abscess of toe, right; Toe pain, right 03/10/2025 9:30 AM EDT Ancillary [place] [address] Menorrhagia with irregular cycle; Endometriosis; Abnormal uterine bleeding (AUB) 03/10/2025 Travel 02/28/2025 1:40 PM EDT Office [facility] [address] Reece Almeida, Menorrhagia with irregular cycle; Endometriosis; Abnormal uterine bleeding (AUB) 02/28/2025 Bamboo flowsheet [facility] [address] [facility] [address] Reece Almeida, 02/17/2025 4:10 PM EDT Office Visit [facility] [address] [facility] [address] [place] [phone] Chaparro Garza DPM Abscess of toe, right (Primary Dx); Onychocryptosis; Toe pain, right 02/17/2025 Bamboo flowsheet [facility] [address] [place] [address] [place] [phone] Chaparro Garza DPM 02/17/2025 Travel from Last [...] 05/12/2025 10:30 AM EDT Office Visit [facility] [address] [place] [address] Yamilet Bauer, SHANTE [address] [place] [address] 06/15/2025 1:00 PM EDT Office Visit [facility] [address] [facility] [phone] Kymberly Godinez PA [address] [facility] [address] [place], [place] [phone] Health Maintenance Due Date Last Done Comments Influenza Vaccine (#1) 2025 Procedures Procedure Name Priority Date/Time Associated Diagnosis Comments ALL DHEA SULFATE Routine 04/22/2025 10:41 AM EDT ENDOMETRIAL BIOPSY Routine 04/06/2025 2: 50 PM EDT Abnormal uterine bleeding (AUB) Menorrhagia with irregular cycle POCT , URINE Routine 04/06/2025 2:44 PM EDT Pre-op examination Abnormal uterine bleeding (AUB) Menorrhagia with irregular cycle Pelvic pain ALL DEHYDROEPIANDROSTERONE Routine 04/06 2:08 PM EDT ALL FOLLICLE STIMULATING HORMONE Routine 04/06/2025 2:08 PM EDT ALL LUTEINIZING HORMONE Routine 04/06/20 2:08 PM EDT ALL DHEA SULFATE Routine 04/06/2025 2:08 PM EDT ALL THYROXINE (T4) FREE Routine 04/06/20 2:08 PM EDT MLR HEMOGLOBIN A1C Routine [...] (AUB) from Last 3 Months Results * ALL DHEA SULFATE (04/22/2025 10:41 AM EDT) Only the most recent of2 resultswithin the time period is included. DHEA-SULFATE 275.0 84.8 - 378.0 ug/dL TB Comment: Performed at: [facility] [id number] [employer] Application Developer: Brady Carballo PhD, Phone: [phone] 04/22/2025 10:4 1 AM EDT 04/22/2025 10:41 AM EDT Isac PULIDO - 04/23/2025 8:08 AM EDT Reece Almeida DO CLINISYROSANNA Final Result [facility] * Endometrial biopsy (04/06/2025 2:50 PM EDT) Yvonne Mares LPN - 04/06/2025 2:50 PM EDT Yvonne [...] vagina. Follow Up: Patient is to return Enval DO IN CLINIC/BEDSIDE ORDERABLES Fin al Result * POCT , urine manually resulted (04/06/2025 2:44 PM EDT) [facility] Preg Test, Ur Negative Negative Urine 04/06/2025 2:44 PM EDT Great Dreamo DO POINT OF CARE TEST ENTER/EDIT OR DERABLES Final Result * TB PREG QUANT HCG (04/06/2025 2:08 PM EDT) [facility] HCG QUANTITATIVE <1 mIU/mL [facility] Comment: 5-50 0.2-1 WEEK 50-500 1-2 WEEKS 100-5,000 2-3 WEEKS 500-10,000 3-4 WEEKS 1,000-50,000 4-5 WEEKS 10,000-100,000 5-6 WEEKS 15,000-200,000 6-8 WEEKS 10,000-100,000 2-3 MONTHS 04/06/2025 2:08 PM EDT 04/06/2025 2:10 PM EDT Narrative CLINISYNC - 04/06/2025 3:00 PM EDT Great Dreamo DO CLINISYNC Final Result [facility] * MLR HEMOGLOBIN A1C (04/06/2025 2:08 PM EDT) [facility] GLYCOHEMOGLOBIN A1C 4.9 4.5 - 6.2 % [facility] Comment: ADA RECOMMENDED LIMIT 4.0 - 6.0 ADA THERAPEUTIC TARGET < 7.0 ACTION SUGGESTED > 7.0 ESTIMATED AVERAGE GLUCOSE 94 mg/dL [facility] 04/06/2025 2:08 PM EDT 04/06/2025 2:10 PM EDT Narrative CLINISYNC - 04/06/2025 3:00 PM EDT Reece Juan Pablo DO CLINISYNC Final Result [facility] * ALL THYROXINE (T4) FREE (04/06/2025 2:08 PM EDT) FREE T4 0.96 0.76 - 1.46 ng/dL [facility] 04/06/2025 2:08 PM EDT 04/06/2025 2:10 PM EDT Narrative CLINISYNC - 04/06/2025 3:23 PM EDT Reece Juan Pablo DO CLINISYNC Final Result Performing Organization Address City/[facility]/ZIP Co de Phone Number [facility] * ALL THYROID STIM HORMONE (04/06/2025 2:08 PM EDT) THYROID STIMULATING HORMONE 0.852 0.358 - 3.740 uIU/mL [facility] 04/06/2025 2:08 PM EDT 04/06/2025 2:10 PM EDT Narrative CLINISYNC - 04/06/2025 3:00 PM EDT Reece Juan Pablo DO CLINISYNC Final Result Performing Organization Address [facility]/ZIP Co de Phone Number [facility] * ALL LUTEINIZING HORMONE (04/06/2025 2:08 PM EDT) LUTEINIZING HORMONE(LH) 7.1 . mIU/mL [facility] Comment: Adult Female Range Follicular phase 2.4 - 12.6 Ovulation phase 14.0 - 95.6 Luteal phase 1.0 - 11.4 Postmenopausal 7.7 - 58.5 04/06/2025 2:08 PM EDT 04/06/2025 2:10 PM EDT Narrative CLINISYNC - 04/07/2025 4:07 AM EDT [facility] Final Result Performing Organization Address [facility]/ZIP Co de Phone Number [facility] * ALL FOLLICLE STIMULATING HORMONE (04/06/2025 2:08 PM EDT) Pathologist [facility] FSH 6.5 . mIU/mL [facility] Comment: Adult Female Range Follicular phase 3.5 - 12.5 Ovulation phase 4.7 - 21.5 Luteal phase 1.7 - 7.7 Postmenopausal 25.8 - 134.8 Performed at: [facility] [id number] [employer] Application Developer: Brady Carballo PhD, Phone: [phone] 04/06/2025 2:08 PM EDT 04/06/2025 2:10 PM EDT Narrative CLINISYNC - 04/07/2025 4:07 AM EDT [facility] Final Result Performing Organization Address [facility] Co de Phone Number [facility] * ALL DEHYDROEPIANDROSTERONE (04/06/2025 2:08 PM EDT) [facility] DHEA, SERUM TNP . ng/dL [facility] Comment: Test not performed. Insufficient specimen to perform or complete analysis. CONTACTED PRECIOUS AT YOUR FACILITY ON 04-13-2025 This test was developed and its performance characteristics determined by [facility]. It has not been cleared or approved by the Food and Drug Administration. 04/06/2025 2:08 PM EDT 04/06/2025 2:10 PM EDT Narrative CLINISYNC - 04/13/2025 2:08 PM EDT [facility] Juan Pablo DO CLINISYNC Final Result Performing Organization Address City/[facility]/ZIP Co de Phone Number [facility] * (ABNORMAL) ALL CBC WITH AUTO DIFF (04/06/2025 2:08 PM EDT) [facility] WBC 7.5 4.0 - 11.0 10 3/uL [...] Reece Juan Pablo DO CLINISYNC Final Result [facility] * US Pelvis w/ TV (03/10/2025 10:34 [...] ovaries. Interpreted by: Electronically signed by VINCENT WALLACE II, MD, PHD at 11-Mar-2025 10:23:29 AM [facility] Procedure Note Vincent Wallace MD - 03/11/2025 EXAM: US PELVIC COMPLETE [...] ovaries. Interpreted by: Electronically signed by VINCENT WALLACE II, MD, PHD [id number] 10:23:29 AM [facility] us Reece Juan Pablo DO IM US PROCEDURES Final Result from Last 3 Months Insurance [employer] Care Teams Process Safety Manager Relationship Specialty Start Date End Date Cassandra Cifuentes MD [address] [place] [address] PCP - General Family Medicine 04/08/23 Donna Lopez NP [address] [place] [address] Nurse Practitioner Family Medicine 03/25/23
--- OUTSIDE RECORDS SUMMARY | 2025-05-06 06:10 | XMS_ITS | Encounter Summary ---
Author Organization [facility] Address [address] [place] [address] Care Team Providers Care Fitter Hand Name Role Phone Donna Lopez NP Unavailable [phone] Cassandra Cifuentes MD Primary Care Provider [phone] Encounter Details Date Type Department Care Team (Late Contact Info) Description 04/22/2025 Clinisync Result Encounter [facility] External Department Unsolicited Reece Almeida DO [address] [place], [place] [id number] Social History Tobacco Use Types Packs/Day Years [...] Description 05/12/2025 10:30 AM EDT Office Visit [facility] [address] [place] [address] Yamilet Bauer, SHANTE [address] [facility] [place] [address] 06/15/2025 1:00 PM EDT Office Visit [facility] [address] [place] [place] [address] Kymberly Godinez PA [address] [place] [address] documented as of this encounter Procedures Procedure Name Priority Date/Time Associated Diagnosis Comments ALL DHEA SULFATE Routine 04/22/2025 10:4 1 AM EDT documented in this encounter Results * ALL DHEA SULFATE (04/22/2025 10:41 AM EDT) DHEA-SULFATE 275.0 84.8 - 378.0 ug/dL [facility] Comment: Performed at: - [facility] [id number] Punch Press Operator Helper: Brady Carballo PhD, Phone: [phone] 04/22/2025 10:4 1 AM EDT 04/22/2025 10:41 AM EDT Narrative CLINISYNC - 04/23/2025 8:08 AM EDT Reece Juan Pablo DO CLINISYNC Final Result [facility] documented in this encounter Visit Diagnoses Not on filedocumented in this encounter Additional Health Concerns Assessment Noted Time PHQ-9 Depression Total Score: 7 10/25/19 25 4:30 PM EST documented as of this encounter Care Teams Fitter Hand Relationship Specialty Start Date End Date Cassandra Cifuentes MD [address] [place] [address] PCP - General Family Medicine 04/08/23 Donna Lopez NP [address] [place] [address] Nurse Practitioner Family Medicine 03/25/23 documented as of this encounter
--- OUTSIDE RECORDS SUMMARY | 2025-05-06 06:10 | XMS_ITS | Patient Health Record ---
Author Organization [facility] vices Address [address] [place], [place] [address] Care Team Providers Care Medical Device Sales Representative Name Role Phone Sascha Tejada Primary Care Provider Allergies Allergen (clinical drug ingredient) Drug/Non Drug Allergy documented on EMR Reaction Allergy Type Onset Date Status amoxicillin Amoxicillin Rash Drug Allergy Act emani Reason For Referral No Information Medications Medication SIG (Take, Route, Frequency, Duration) Notes Start Date End Date Status SUMAtriptan Succinate 50 MG 1 tablet Ora lly as directed; Duration: 30 days 04/22/2022 Active Amitriptyline HCl 50 MG 1 tablet at bedt rachael Orally Once a day; Duration: 30 day(s) 04/22/2022 Active Social History Tobacco [...] Problem Status W/U Status Risk Notes Problem Migraine without aura, not refractory (401268307) Migraine without aura and without status migrainosus, not intractable (G43.009) Active confirmed Problem New daily persistent headache (disorder) (9235688982768 05) Persistent headaches (R51.9) Active confirmed Comment:-Patient [...] and father expressed understanding., Problem Depression screening (366120217) Screening for depression (Z13.31) Active confirmed Description:Dep r ession screening Problem Dyspnea (853752930) Breath shortness (R06.02) 009 Active confirmed Description:Shor tness of breath Problem Insomnia (062763579) Insomnia (G47.00) Active confirmed Problem Migraine (64337238) Migraine (G43.909) Active confirmed Problem Dysmenorrhea (217247221) Menses painful (N94.6) Active confirmed Comment:Will refer to [facility] for further evaluation of painful irregular menstruation; prefers a women Can continue with heat for comfort as needed, Problem Mixed anxiety and depressive disorder (977313272) Anxiety and depression (F41.9) Active confirmed Problem Medication refill (V68.1) (Z76.0) Active confirmed Problem Well child visit (167601214) FEMALE ADOLESCENT WELL VISIT (V20.2) (V20.2) Active confirmed Comment:Instruc t ed to continue to take medications as needed, return if symptoms worsen or do not get better. Instructed on immunizations that would be required prior to starting school. Patient verbalizes and agrees with plan of care., Problem Costal chondritis (34307780) Costal chondritis (M94.0) Active confirmed Comment:-Pt has [...] plan,Description :Costalchondriti s Problem Pain in wrist (49700133) Wrist pain, left (M25.532) Active confirmed Comment:Resolved with PT. X-rays negative for fracture. Doing much better... F/u as needed., Problem Headache (06329241) New onset of headaches (784.0) (784.0) Active confirmed Comment:Started last week, no history of headaches. No focal neurologic signs. Neurology referral., Problem Contact dermatitis (34779377) Dermatitis, contact (L25.9) Active confirmed Comment:potentia lly resolving contact dermatitis ? though if it is more eczema than contact encouraged to use routine moisturizing (eucerin) if not resolving, can trial hydrocortisone, Problem Asthma without status asthmaticus (81033443) Asthma, mild (J45.909) Active confirmed Comment:-SOB and issues with breathing have improved since last visit -Ventolin inhaler use decreasing; now only using 1-2x/week -No longer having chest pain -Not symptoms at night; not affecting ADLs -If symptoms worsen or return; return to office; [facility], Problem Sprain and strain of ribs (S23.41XA) 009 Active confirmed Problem Well child visit (655761741) Routine infant or child health check (V20.2) (V20.2) 010 Active confirmed Problem Otitis media of left ear (1026129283340 100) Left otitis media (H66.92) Active confirmed [...] Date Coverage End Date [employer] [address] [place] [address] [place], [place] [phone] [id number] Chelsy Bhatti Self - patient is the insured 3 [facility] [facility] [address] [address] [place] [address] [id number] Chelsy Bhatti Self - patient is the insured 2 Medical (General) History Medical History History ICD Code Anxiety and depression Asthma, mild Surgical History Surgery Date(Month/Year) endometrial ablation 2018
--- OUTSIDE RECORDS SUMMARY | 2025-05-06 06:10 | XMS_ITS | Clinical Summary ---
Author Organization [employer] tem Address [id number] [address] [place] [address] Care Team Providers Care Landscape Architecture Professor Name Role Phone Cassandra Cifuentes MD Primary Care Provider [phone] Allergies Active Allergy Reactions Criticality Noted Date [...] - 04/13/2025 11:59 PM EDT Hospital Encounter [facility] - Ultrasound [address] [place] [address] Ureteral stone Discharge Disposition: Home 04/13/2025 Travel 04/11/2025 3:30 PM EDT Office Visit [facility] [address] [place] [address] [phone] Paul Montoya MD Nephrolithiasis (Primary Dx) 04/07/2025 2:10 PM EDT - 04/07/2025 11:59 PM EDT Hospital Encounter [facility] - Radiology [address] [place] [address] Ureteral stone Discharge Disposition: Home 04/07/2025 [facility]phone [facility] [address] [place] [phone] Juan Moreau MD 04/07/2025 Travel from Last [...] Office Visit [facility] [address] [place] [address] [place] [address] Paul Montoya MD [address] [place] [address] Health Maintenance Due Date Last Done Comments [...] on 04/10/2025 4:27 AM Juan Moreau MD [facility] ORDE RABLES Final Result * Parathyroid Hormone, intact (04/07/2025 2:09 PM EDT) PTH INTACT 42 12 - 88 pg/mL 04/07/2025 8:23 PM EDT [facility] Blood Venous blood / Unknown Venipuncture / Unknown 04/07/2025 2:09 PM EDT 04/07/2025 2:09 PM EDT Juan Moreau MD LAB BLOOD ORDERABLES Final Result [facility] [address] [place] [address], * Uric acid (04/07/2025 2:09 PM EDT) URIC ACID 4.8 2.6 - 7.2 mg/dL 04/07/2025 8:12 PM EDT [facility] Blood Venous blood / Unknown Venipuncture / Unknown 04/07/2025 2:09 PM EDT 04/07/2025 2:09 PM EDT Juan Moreau MD LAB BLOOD ORDERABLES Final Result Performing Organization Address [facility]/ZIP Co de Phone Number [facility] [address] [place] [address], * Pap Smear (07/09/2017 12:32 PM EDT) Cervical TP 07/09/2017 12:3 2 PM EDT 07/10/2017 12:33 PM EDT Narrative COPATH - 07/14/2017 9:32 AM EDT [facility] [place], [place] [address] Gynecologic Cytology Consultation Patient Name: CHELSY RAMSEY : 1995 (Age: 21) Gender: F Taken: 07/09/2017 Reported: 07/14/2017 Physician(s): Ondina Albarran CNM ( ) Copy To: Med. Rec. #: [id number] Acct: # [id number] Final Cytologic Interpretation Cervical (with or without endocervical) ThinPrep: Satisfactory for evaluation. A transformation zone component is present. NEGATIVE FOR INTRAEPITHELIAL LESION OR MALIGNANCY. michelle/07/14/2017 Electronically Signed Out By [facility] (ASCP) Date of Last Menstrual Period: 07-01-17 Other Clinical Conditions: Screening/Routine z01.419 Job Setter Honing exam wo/abn findings Source of Specimen Cervical (with or without endocervical) ThinPrep Thin Prep Pap (CHEMICAL ANALYTICAL SAMPLER) Fee Code(s): G0145 The Pap test is a screening test with an inherent, but low, probability of error. The Pap test is primarily effective for the diagnosis and prevention of squamous cell carcinoma. Regular screening is critical for prevention. ThinPrep liquid-based slides, which meet the Portfolio Lead criteria for automated screening, have been screened by the ThinPrep Imaging System (as of 06/15/07) along with an additional manual rescreening by a manager crisis and, if indicated, by a pathologist.Ondina Albarran CNM 07/11/2017 Ondina Albarran SPEECH LANG PATH THERAPIST-[facility] PATHOLOGY/CYTOLOGY ORDERAB LES Final Result COPATH from Last 3 Months or Most Recently Relevant to Health Maintenance Insurance AET Care Teams Landscape Architecture Professor Relationship Specialty Start Date End Date Cassandra Cifuentes MD [address] [place] [address] PCP - General Family Medicine 12/22/24
[2025-05-06 06:23] LABS: Hematocrit 36.6 % (36.0-48.0); Hemoglobin 12.6 g/dL (12.0-16.0); Immature Granulocytes Abs Auto 0.02 10^3/uL (0.00-0.03); Immature Granulocytes Pct Auto 0.2 % (0.0-0.5); Lymphocytes Absolute Auto 2.2 10^3/uL (1.2-3.8); Mean Corpuscular HGB Conc 34.4 g/dL (29.9-35.2); Mean Corpuscular Hemoglobin 31.8 pg (26.7-34.0); Mean Corpuscular Volume 92.4 fL (81.0-99.0); Platelet Count 244 10^3/uL (150-450); Red Blood Count 3.96 10^6/uL (4.20-5.40); White Blood Count 8.9 10^3/uL (4.0-11.0)
--- NOTE | 2025-05-06 08:45 | P.ON_ITS ---
Brief Operative Note Date of procedure: 05/06/25 Pre-op diagnosis general: menorrhagia, desires sterilization Post-op diagnosis: other (adenomyotic appearing uterus, anterior uterine fibroid) Procedure: NAME OF PROCEDURE: robotic assisted Laparoscopic bilateral salpingectomy, with Raven endometrial ablation with hysteroscopy endometrial bx PROCEDURE: The patient was taken back to the OR where she was prepped and draped in the normal sterile fashion after being placed in the dorsal lithotomy position, after being placed under general anesthesia without difficulty. a weighted speculum was then placed into the vagina. endometrial bx were performed without difficulty The anterior lip was grasped with a single tooth tenaculum. The patient was then sounded to approximatley 9cm. The patient was gently sounded using Hegar dilators and the hysteroscope was passed through the cervix into the uterus where both ostia were seen. No gross evidence of polyps, fibroids or malignancy. The cervical length was noted to be 4cm. The Raven ablation apparatus was set to approximately 5cm in length. This was placed in through the cervix and into the uterus. After the seal was tested, at that time the total ablation of 120 seconds was performed with the Raven without difficulty. All instruments were removed from the vagina. A wet sponge stick was placed into the patient's vagina. Attention was then turned to the patient's abdomen, where a scalpel was used to make a small infraumbilical incision. The S retractors were then used to dissect the underlying layers until the fascia could be seen. The fascia was then grasped with Ana clamps and tented up. A knife was then used to make a small incision to the fascia. The muscle was identified, at that time two sutures of #0 Vicryl on a GI needlewas then used and placed through the fascia. The peritoneum was then identified and entered bluntly. The 10-4 Ilsa was then placed into the patient's abdomen. This was confirmed with direct visualization of the bowel, using the laparoscope. The patient's abdomen was then insufflated using approximately 4 liters of CO2 gas. Survey of the patient's abdomen demonstrated normal appearing ovaries, uterus and tubes. A second and third lateral robotic ports, which was 8mm in size, was then placed laterally after incision was made in the skin under direct visualization. the robotic arms were engaged. The p atient's tube on the patient's right side was identified. The tube was then tented up using a grasper. The ligasure was used to transect and coagulate the mesosalpingx from the fimbriated end to the insertion at the uterus, the tube was amputated and removed in its entirety.? Excellent hemostasis was noted. ?This was performed on the contralateral sideas well. The lateral ports were then moved under direct visualization with excellent hemostasis. The abdomen was deinsufflated. All instruments were removed from the patient's abdomen. The fascia was closed using the #0 Vicryl on GI needle. The skin was closed using 4- 0 Vicryl subcuticularly. All instruments were removed from the patient's vagina as well. The patient was taken out of the dorsal lithotomy position and placed in the supine position and taken to recovery in stable condition. Sponge, lap and needle counts were correct x2. ??? Anesthesia: MELISSA Surgeon: Reece Almeida Textile Chemist: Julianne Robb Estimated blood loss (mL): 5 Pathology: other (endometrial bx, bilateral tubes) Condition: stable Disposition: PACU Urinary Catheter Management Urinary Catheter Management Urethral: Cath placed during this visit: no
--- NOTE | 2025-05-06 09:45 | PC.NURSE ---
hot pack to abdomen over clothing
[2025-05-06] MEDS: HYDROMORPHONE HCL 0.5 MG/0.5 ML SYRINGE IV (09:59)
[2025-05-06] MEDS: HYDROCODONE/ACET 5-325 MG TABLET 1 TAB PO (10:15)
--- NOTE | 2025-05-06 11:49 | PC.NURSE ---
Patient ambulates to restroom with only standby assist x1 at this time. Patient was able to urinate without difficulty
== END 2025-05-06 12:05 | disposition home or self-care (01) ==
LOC: SURGOUT 06:08
PROVIDERS: Visit Provider Obstetrics & Gynecology
PROC: (CPT 840; principal; 2025-05-06 07:30)
DX: Z30.2 Encounter for sterilization (principal); N92.0 Excessive and frequent menstruation with regular cycle; N93.9 Abnormal uterine and vaginal bleeding, unspecified; R10.2 Pelvic and perineal pain; D25.9 Leiomyoma of uterus, unspecified; Z87.442 Personal history of urinary calculi; F41.9 Anxiety disorder, unspecified; N80.9 Endometriosis, unspecified
CPT/HCPCS: 58100; 58563; 58661; 36415; 84702; 85025; 88302; 88305; J1100; J1171; J1885; J2250; J2704; J3010

== ENCOUNTER 2025-06-15 20:25 | Outpatient (REF) | payer OTHER, SELFPAY ==
[2025-06-23 15:09] LABS: Age Gdln ACOG Testing Note (.); IGP, rfx Aptima HPV ASCU Note (.)
== END 2025-06-15 20:26 | disposition home or self-care (01) ==
LOC: LAB 20:25
PROVIDERS: Visit Provider Physician Assistant
DX: Z01.419 Encounter for gynecological examination (general) (routine) without abnormal findings (principal)
CPT/HCPCS: 88175